=== PATIENT | female | born 1955 | race African-American/Black ===

== ENCOUNTER 2019-05-26 11:16 | Emergency (ER) | payer OTHER ==
[2019-05-26] MEDS ORDERED: ONDANSETRON 4 MG/2 ML VIAL ONE (11:56)
[2019-05-26] MEDS ORDERED: MORPHINE 4 MG/ML SYR ONE (11:56)
[2019-05-26 12:15] LABS: Absolute Lymphocytes (CBC) 1.3 K/uL (0.7-4.9); Basophils % 0.6 % (0-1.3); Eosinophils % 3.2 % (0-4.4); Hematocrit 31.5 % (36.0-45.0); Lymphocytes % 28.7 % (15.3-44.8); MPV 9.4 fL (7.6-11.3); Monocytes % 5.2 % (3.3-12.3); RBC Red Blood Cell Count 3.56 M/uL (3.86-4.86)
[2019-05-26 12:31] LABS: Albumin 3.6 g/dL (3.4-5.0); Bilirubin Direct 0.1 mg/dL (0-0.2); Bilirubin Total 0.4 mg/dL (0.2-1.0); Potassium 3.5 mmol/L (3.5-5.1); Protein, Total 7.5 g/dL (6.4-8.2)
[2019-05-26] MEDS ORDERED: NA CHLORIDE 0.9% 1,000 ML ONE (12:52)
[2019-05-26 13:28] LABS: Urine Blood TRACE (NEG); Urine Glucose NEGATIVE (NEG); Urine Protein TRACE (NEG); Urine Specific Gravity 1.015 (1.005-1.030)
--- NOTE | 2019-05-26 13:30 | RAD REPORT ---
EXAM DESCRIPTION: CT - Abdomen Pelvis W Contrast - 05/26/2019 12:51 pm CLINICAL HISTORY: Abdominal pain with dysuria COMPARISON: November 2017 TECHNIQUE: Computed axial tomography of the abdomen pelvis was obtained. 100 cc Isovue-300 was admin istered intravenously. Oral contrast was not requested which limits evaluation of bowel. All CT scans are performed using dose optimization technique as appropriate and may include automated exposure control or mA/KV adjustment according to patient size. FINDINGS: The liver, spleen, pancreas, adrenal and kidneys appear unremarkable. There is no evidence of diverticulitis. 7 millimeter bladder calculus. Cholecystectomy Proximal appendix is normal. Borderline dilatation of the distal appendix. No stranding within the ad jacent. A 24 millimeter complex cystic structure within the vagina is unchanged IMPRESSION: Borderline dilatation of distal appendix. Given that there is no stranding within the ad jacent fat this may be normal for the patient. Early appendicitis is another consideration 24 millimeter complex cystic structure within the vagina is unchanged and presumably benign. Follow-u p ultrasound 6 months recommended for re-evaluation.
[2019-05-26 13:40] LABS: Urine Bacteria 20-50 /HPF (<20); Urine Culture Reflex Order REFLEXED; Urine RBC <5 /HPF (NONE SEEN)
--- NOTE | 2019-05-26 17:46 | RAD REPORT ---
EXAM DESCRIPTION: CT - Abdomen Pelvis Wo Contrast - 05/26/2019 5:16 pm CLINICAL HISTORY: Abdominal pain with vomiting for several months COMPARISON: May 26, 2019 CT TECHNIQUE: Computed axial tomography of the abdomen and pelvis was obtained.. Oral contrast was give n. Coronal reconstructions performed. All CT scans are performed using dose optimization technique as appropriate and may include automated exposure control or mA/KV adjustment according to patient size. FINDINGS: The examination was performed to assess appendix. The terminal ileum and cecum are opacified with con trast. No no oral contrast taken for the current exam is seen within the appendix. The proximal appendix is normal. The distal appendix is borderline enlarged. No stranding is seen wit hin the adjacent fat IMPRESSION: The borderline enlargement of the appendix may be a normal finding for this patient. Ea rly appendicitis can also have this appearance.
--- NOTE | 2019-05-26 18:09 | EDPHYS ---
Physician Documentation [facility] Name: Jacinta Olea Age: 63 yrs Sex: Female : 1955 Arrival Date: 05/26/2019 Time: 11:18 Bed 20 Private MD: ED Physician Nino Starkey HPI: 05/26 11:41 This 63 yrs old Black Female presents to ER via Ambulatory with complaints of Abdominal kb Pain. 11:41 The patient presents with abdominal pain that is diffuse. Onset: The symptoms/episode kb began/occurred 3 week(s) ago. The symptoms do not radiate. Associated signs and symptoms: none. The symptoms are described as constant. Modifying factors: The symptoms are alleviated by nothing, the symptoms are aggravated by nothing. Severity of pain: At its worst the pain was moderate in the emergency department the pain is unchanged. The patient has not experienced similar symptoms in the past. The patient has not recently seen a physician. Historical: - Allergies: 11:23 PENICILLINS; aj1 - Home Meds: 11:23 alprazolam 1 mg Oral tab 1 tab 3 times per day [Active]; atorvastatin 40 mg Oral tab 1 aj1 tab once daily [Active]; benzonatate 100 mg Oral cap twice a day [Active]; benztropine 2 mg Oral tab 1 tab 2 times per day [Active]; Duexis 800-26.6 mg Oral tab [Active]; gabapentin 300 mg Oral cap twice a day [Active]; hydroxyzine HCl 25 mg Oral tab nightly [Active]; loratadine 10 mg Oral tab 1 tab once daily [Active]; Seroquel 400 mg Oral tab nightly [Active]; sertraline 200 mg Oral tab once daily [Active]; trazodone 100 mg Oral tab nightly [Active]; - PMHx: 11:23 Anxiety; Depression; Hyperlipidemia; aj1 - PSHx: 11:23 Hysterectomy; aj1 - Immunization history:: Flu vaccine is not up to date. - Social history:: Smoking status: Patient uses tobacco products, denies chronic smoking, but will smoke occasionally. - Ebola Screening: : Patient denies travel to an Ebola-affected area in the 21 days before illness onset. ROS: 11:40 Constitutional: Negative for fever, chills, and weight loss, ENT: Negative for injury, kb pain, and discharge, Neck: Negative for injury, pain, and swelling, Cardiovascular: Negative for chest pain, palpitations, and edema, Respiratory: Negative for shortness of breath, cough, wheezing, and pleuritic chest pain, Back: Negative for injury and pain, MS/Extremity: Negative for injury and deformity, Skin: Negative for injury, rash, and discoloration, Neuro: Negative for headache, weakness, numbness, tingling, and seizure. 11:40 Abdomen/GI: Positive for abdominal pain, Negative for nausea, vomiting, and diarrhea, constipation, abdominal cramps, abdominal distension, anorexia. 11:40 : Positive for urinary symptoms. Exam: 11:40 Constitutional: This is a well developed, well nourished patient who is awake, alert, kb and in no acute distress. Head/Face: Normocephalic, atraumatic. Chest/axilla: Normal chest wall appearance and motion. Nontender with no deformity. No lesions are appreciated. Cardiovascular: Regular rate and rhythm with a normal S1 and S2. No gallops, murmurs, or rubs. Normal PMI, no JVD. No pulse deficits. Respiratory: Lungs have equal breath sounds bilaterally, clear to auscultation and percussion. No rales, rhonchi or wheezes noted. No increased work of breathing, no retractions or nasal flaring. Back: No spinal tenderness. No costovertebral tenderness. Full range of motion. Skin: Warm, dry with normal turgor. Normal color with no rashes, no lesions, and no evidence of cellulitis. MS/ Extremity: Pulses equal, no cyanosis. Neurovascular intact. Full, normal range of motion. Neuro: Awake and alert, GCS 15, oriented to person, place, time, and situation. Cranial nerves II-XII grossly intact. Motor strength 5/5 in all extremities. Sensory grossly intact. Cerebellar exam normal. Normal gait. 11:40 Abdomen/GI: Inspection: abdomen appears normal, Bowel sounds: normal, in all quadrants, Palpation: soft, in all quadrants, mild abdominal tenderness, in the right upper quadrant and left upper quadrant, moderate abdominal tenderness, in the right lower quadrant and left lower quadrant. Vital Signs: 11:23 BP 188 / 89; Pulse 83; Resp 18; Temp 97.6; Pulse Ox 95% on R/A; Weight 111.13 kg (R); aj1 Height 5 ft. 4 in. (162.56 cm) (R); Pain 10/10; 12:00 BP 144 / 70; Pulse 78; Resp 18; Pulse Ox 99% on R/A; em 13:34 BP 176 / 85; Pulse 76; Resp 18; Pulse Ox 95% on R/A; Pain 10/10; em 14:30 BP 174 / 86; Pulse 76; Resp 18; Pulse Ox 99% on R/A; Pain 5/10; em 16:01 BP 168 / 80; Pulse 73; Resp 18; Pulse Ox 97% on R/A; em 16:30 BP 166 / 82; Pulse 73; Resp 17; Temp 97.9(TE); Pulse Ox 95% on R/A; Pain 8/10; rb1 17:30 BP 136 / 82; Pulse 81; Resp 18; Temp 98.0; Pulse Ox 97% on R/A; Pain 7/10; rb1 18:30 BP 147 / 92; Pulse 77; Resp 19; Temp 98.3(O); Pulse Ox 96% on R/A; Pain 6/10; rb1 11:23 Body Mass Index 42.05 (111.13 kg, 162.56 cm) aj1 MDM: 11:28 Patient medically screened. kb 11:40 Data reviewed: vital signs, nurses notes. Data interpreted: Pulse oximetry: on room air kb is 95 %. Interpretation: normal. 14:44 ED course: Repeat abd CT with PO contrast ordered due to findings of "borderline kb dilation of distal appendix" on first scan. . 18:05 Counseling: I had a detailed discussion with the patient and/or guardian regarding: the kb historical points, exam findings, and any diagnostic results supporting the discharge/admit diagnosis, lab results, radiology results, the need for outpatient follow up, a family practitioner, a general surgeon, to return to the emergency department if symptoms worsen or persist or if there are any questions or concerns that arise at home. Special discussion: Based on the patient's Hx, exam, and Dx evaluation, there is no indication for emergent surgery or inpatient Tx. It is understood by the patient/guardian that if the Sx's persist or worsen they need to return immediately for re-evaluation. ED course: Appendicitis unlikely with pt's history and exam findings. Pt has had pain for 3 weeks, WBC normal, no fever, no n/v/d. Pt has tenderness to entire lower abd, no point tenderness, no rebound tenderness. Pt's CT scan from November 2017 also revealed enlarged appendix, no appendectomy performed. Appendix enlargement seen on CT likely normal for pt. Pt given strict return precautions. . 18:09 Data reviewed: I have discussed the patient's presentation/case with the attending Emergency Department Physician;. 05/26 11:35 Order name: Basic Metabolic Panel; Complete Time: 12:32 kb 05/26 11:35 Order name: CBC with Diff; Complete Time: 12:28 kb 05/26 11:35 Order name: Hepatic Function; Complete Time: 12:32 kb 05/26 11:35 Order name: Lipase; Complete Time: 12:32 kb 05/26 13:15 Order name: Urine Microscopic Only; Complete Time: 13:41 kb 05/26 13:17 Order name: Urine Dipstick--Ancillary (enter results); Complete Time: 13:31 eb 05/26 11:35 Order name: CT Abd/Pelvis - IV Contrast Only; Complete Time: 13:31 kb 05/26 13:41 Order name: Urine Culture EDMS 05/26 14:55 Order name: Abdomen ; Complete Time: 17:47 EDMS 05/26 11:35 Order name: IV Saline Lock; Complete Time: 11:55 kb 05/26 11:35 Order name: Labs collected and sent; Complete Time: 11:55 kb 05/26 11:35 Order name: Urine Dipstick-Ancillary (obtain specimen); Complete Time: 13:33 kb Administered Medications: 11:50 Drug: Zofran 4 mg Route: IVP; Site: right antecubital; ss 13:15 Follow up: Response: No adverse reaction em 11:52 Drug: morphine 4 mg Route: IVP; Site: right antecubital; ss 13:14 Follow up: Response: No adverse reaction em 13:14 Drug: NS 0.9% 1000 ml Route: IV; Rate: 1000 ml; Site: right antecubital; em 18:21 Follow up: IV Status: Completed infusion rb1 18:29 Drug: Cipro 500 mg Route: PO; rb1 18:29 Follow up: Response: Medication administered at discharge. rb1 Disposition: 18:34 Co-signature as Attending Physician, Nino Starkey MD Evaluated patient, first CT abdomen rn showed borderline dilated appendix without secondary signs of appendicitis. Given normal WBC and pain for 3 weeks and afebrile, unlikely appendicitis. Abd exam shows more left sided pain and no peritoneal signs. Chart review shows previous admission for same borderline dilated appendix and didn't require surgery. Given no change and no secondary signs of appendicitis in numerous CT scans, decision made after long discussion with patient and regarding care. Patient with chief complaint of urinary symptoms, dysuria, and states usually has similar abd pain with her previous UTIs. Return precautions given and understood.. Disposition: 05/26/19 18:08 Discharged to Home. Impression: Urinary tract infection, site not specified, Generalized abdominal pain. - Condition is Stable. - Discharge Instructions: Urinary Tract Infection, Adult, [id number], Abdominal Pain, Adult, [id number]. - Prescriptions for Bentyl 20 mg Oral Tablet - take 1 tablet by ORAL route every 6 hours As needed; 20 tablet. Cipro 500 mg Oral Tablet - take 1 tablet by ORAL route every 12 hours for 7 days; 14 tablet. - Medication Reconciliation Form, Thank You Letter, Antibiotic Education, Prescription Opioid Use form. - Follow up: Emergency Department; When: As needed; Reason: Worsening of condition. Follow up: Private Physician; When: 2 - 3 days; Reason: Recheck today's complaints, Continuance of care, Re-evaluation by your physician. Signatures: Dispatcher [employer] [facility] Elsa Arreola, MOBILE PLANT OPERATORS-C [employer]ANT OPERATORS-Heaven Davalos RN RN aj1 Hair Nguyen, COMPUTING CONSULTANT COMPUTING CONSULTANT em Nino Starkey MD MD rn Smirch, Shelby, RN RN ss Barber, Rebecca, RN RN rb1 Corrections: (The following items were deleted from the chart) 14:55 14:46 Abdomen Pelvis W Con+CT.RAD.BRZ ordered. [facility] 18:32 18:08 05/26/2019 18:08 Discharged to Home. Impression: Urinary tract infection, site rb1 not specified; Generalized abdominal pain. Condition is Stable. Forms are Medication Reconciliation Form, Thank You Letter, Antibiotic Education, Prescription Opioid Use. Follow up: Emergency Department; When: As needed; Reason: Worsening of condition. Follow up: Private Physician; When: 2 - 3 days; Reason: Recheck today's complaints, Continuance of care, Re-evaluation by your physician. kb
--- NOTE | 2019-05-26 18:09 | ER ---
Nurse's Notes [facility] Name: Jacinta Olea Age: 63 yrs Sex: Female : 1955 Arrival Date: 05/26/2019 Time: 11:18 Bed 20 Private MD: Diagnosis: Urinary tract infection, site not specified;Generalized abdominal pain Presentation: 05/26 11:20 Presenting complaint: Patient states: Abdominal pain, dysuria for the past 3 weeks. aj1 Denies N/V. Reports diarrhea. Denies fever. Transition of care: patient was not received from another setting of care. Onset of symptoms was April 2019. Risk Assessment: Do you want to hurt yourself or someone else? Patient reports no desire to harm self or others. Initial Sepsis Screen: Does the patient meet any 2 criteria? No. Patient's initial sepsis screen is negative. Does the patient have a suspected source of infection? Yes: Dysuria/Frequency/Urgency/UTI Acute abdominal pain. Care prior to arrival: None. 11:20 Method Of Arrival: Ambulatory aj 11:20 Acuity: LAUREN 3 aj1 Triage Assessment: 11:23 General: Appears in no apparent distress. uncomfortable, Behavior is calm, cooperative, aj1 appropriate for age. Pain: Complains of pain in suprapubic area Pain currently is 10 out of 10 on a pain scale. Neuro: Level of Consciousness is awake, alert, obeys commands. Cardiovascular: Patient's skin is warm and dry. Respiratory: Airway is patent Respiratory effort is even, unlabored, Respiratory pattern is regular, symmetrical. GI: Reports diarrhea, Patient currently denies nausea, vomiting. : Reports burning with urination. Historical: - Allergies: 11:23 PENICILLINS; aj1 - Home Meds: 11:23 alprazolam 1 mg Oral tab 1 tab 3 times per day [Active]; atorvastatin 40 mg Oral tab 1 aj1 tab once daily [Active]; benzonatate 100 mg Oral cap twice a day [Active]; benztropine 2 mg Oral tab 1 tab 2 times per day [Active]; Duexis 800-26.6 mg Oral tab [Active]; gabapentin 300 mg Oral cap twice a day [Active]; hydroxyzine HCl 25 mg Oral tab nightly [Active]; loratadine 10 mg Oral tab 1 tab once daily [Active]; Seroquel 400 mg Oral tab nightly [Active]; sertraline 200 mg Oral tab once daily [Active]; trazodone 100 mg Oral tab nightly [Active]; - PMHx: 11:23 Anxiety; Depression; Hyperlipidemia; aj1 - PSHx: 11:23 Hysterectomy; aj1 - Immunization history:: Flu vaccine is not up to date. - Social history:: Smoking status: Patient uses tobacco products, denies chronic smoking, but will smoke occasionally. - Ebola Screening: : Patient denies travel to an Ebola-affected area in the 21 days before illness onset. Screenin:45 Abuse screen: Denies threats or abuse. Nutritional screening: No deficits noted. em Tuberculosis screening: No symptoms or risk factors identified. Fall Risk None identified. Assessment: 11:30 General: Appears in no apparent distress. uncomfortable, Behavior is calm, cooperative, em Denies fever. Pain: Complains of pain in abdomen Pain currently is 10 out of 10 on a pain scale. Neuro: Level of Consciousness is awake, alert, obeys commands, Oriented to person, place, time, situation. Cardiovascular: Capillary refill < 3 seconds is brisk Patient's skin is warm and dry. Respiratory: Airway is patent Respiratory effort is even, unlabored, Respiratory pattern is regular, symmetrical. GI: Abdomen is obese, Bowel sounds present X 4 quads. Abd is soft X 4 quads Abdomen is tender to palpation X 4 quads. Reports nausea, vomiting, Patient currently denies diarrhea. : Reports urinary frequency, "urine smells". Derm: Skin is intact, is healthy with good turgor, Skin is pink, warm \\T\\ dry. Musculoskeletal: Range of motion: intact in all extremities. 12:45 Reassessment: Patient appears in no apparent distress at this time. wheeled to CT via em wheelchair. 13:32 Reassessment: Patient appears in no apparent distress at this time. Patient and/or em family updated on plan of care and expected duration. Pain level reassessed. Patient is alert, oriented x 3, equal unlabored respirations, skin warm/dry/pink. 14:44 Reassessment: Patient appears in no apparent distress at this time. Patient and/or em family updated on plan of care and expected duration. Pain level reassessed. Patient is alert, oriented x 3, equal unlabored respirations, skin warm/dry/pink. 15:17 Reassessment: finished drinking PO contrast, tolerated well, notified CT. em 16:00 Reassessment: Patient appears in no apparent distress at this time. Patient and/or em family updated on plan of care and expected duration. Pain level reassessed. Patient is alert, oriented x 3, equal unlabored respirations, skin warm/dry/pink. 16:05 Reassessment: HAIR Arndt notified provider that the pt. was requesting pain medication. rb1 He did not receive any new orders per his report. 16:25 General: Appears uncomfortable, Behavior is calm, cooperative. Pain: Complains of pain rb1 in abdomen Pain currently is 7 out of 10 on a pain scale. Neuro: Level of Consciousness is awake, alert, obeys commands, Oriented to person, place, time, situation. Cardiovascular: Capillary refill < 3 seconds is brisk in bilateral fingers. Respiratory: Airway is patent Respiratory effort is even, unlabored, Respiratory pattern is regular, symmetrical. Derm: Skin is dry, Skin is normal, Skin temperature is warm. 17:30 Reassessment: Patient appears in no apparent distress at this time. No changes from rb1 previously documented assessment. Family at bedside. 18:30 Reassessment: Patient appears in no apparent distress at this time. Patient and/or rb1 family updated on plan of care and expected duration. Pain level reassessed. Patient is alert, oriented x 3, equal unlabored respirations, skin warm/dry/pink. Vital Signs: 11:23 BP 188 / 89; Pulse 83; Resp 18; Temp 97.6; Pulse Ox 95% on R/A; Weight 111.13 kg (R); aj1 Height 5 ft. 4 in. (162.56 cm) (R); Pain 10/10; 12:00 BP 144 / 70; Pulse 78; Resp 18; Pulse Ox 99% on R/A; em 13:34 BP 176 / 85; Pulse 76; Resp 18; Pulse Ox 95% on R/A; Pain 10/10; em 14:30 BP 174 / 86; Pulse 76; Resp 18; Pulse Ox 99% on R/A; Pain 5/10; em 16:01 BP 168 / 80; Pulse 73; Resp 18; Pulse Ox 97% on R/A; em 16:30 BP 166 / 82; Pulse 73; Resp 17; Temp 97.9(TE); Pulse Ox 95% on R/A; Pain 8/10; rb1 17:30 BP 136 / 82; Pulse 81; Resp 18; Temp 98.0; Pulse Ox 97% on R/A; Pain 7/10; rb1 18:30 BP 147 / 92; Pulse 77; Resp 19; Temp 98.3(O); Pulse Ox 96% on R/A; Pain 6/10; rb1 11:23 Body Mass Index 42.05 (111.13 kg, 162.56 cm) aj1 ED Course: 11:18 Patient arrived in ED. as 11:21 Triage completed. aj1 11:23 Elsa Arreola FNP-C [facility] kb 11:23 Nino Starkey MD is Attending Physician. kb 11:23 Arm band placed on Patient placed in an exam room. aj1 11:30 Hair Nguyen LVN is Primary Nurse. em 11:45 Patient has correct armband on for positive identification. Bed in low position. Call em light in reach. Adult w/ patient. Pulse ox on. NIBP on. 11:50 Initial lab(s) drawn, by me, sent to lab. Inserted saline lock: 22 gauge in right em antecubital area, using aseptic technique. Blood collected. 12:52 CT Abd/Pelvis - IV Contrast Only In Process Unspecified. EDMS 17:16 Abdomen In Process Unspecified. EDMS 17:22 CT completed. Patient tolerated procedure well. Patient moved to CT via stretcher. Patient moved back from CT. 18:31 No provider procedures requiring assistance completed. IV discontinued, intact, rb1 bleeding controlled, No redness/swelling at site. Pressure dressing applied. Administered Medications: 11:50 Drug: Zofran 4 mg Route: IVP; Site: right antecubital; ss 13:15 Follow up: Response: No adverse reaction em 11:52 Drug: morphine 4 mg Route: IVP; Site: right antecubital; ss 13:14 Follow up: Response: No adverse reaction em 13:14 Drug: NS 0.9% 1000 ml Route: IV; Rate: 1000 ml; Site: right antecubital; em 18:21 Follow up: IV Status: Completed infusion rb1 18:29 Drug: Cipro 500 mg Route: PO; rb1 18:29 Follow up: Response: Medication administered at discharge. rb1 Outcome: 18:08 Discharge ordered by . alesha 18:31 Discharged to home ambulatory, with family. rb1 18:31 Condition: stable 18:31 Discharge instructions given to patient, Instructed on discharge instructions, follow up and referral plans. medication usage, Demonstrated understanding of instructions, follow-up care, medications, Prescriptions given X 2. 18:32 Patient left the ED. rb1 Signatures: Dispatcher [employer] EDElsa Mackenzie, TRANSFORMER BUILDER-C TRANSFORMER BUILDER-Ckb Heaven Evans, RN RN aj1 Jaylen Theodore Edgar, LASER TECHNICIAN LASER TECHNICIAN em Haily Rodriguez Shelby, NAVA RN Whitley Thorpe RN RN rb1 Corrections: (The following items were deleted from the chart) 16:03 16:01 BP 168 / 80; Pulse 18bpm; Resp 18bpm; Pulse Ox 97% RA; em em
[2019-05-26] MEDS ORDERED: CIPROFLOXACIN HCL 500 MG TAB ONE (18:39)
[2019-05-26 19:11] VITALS: BP 147/92; TEMP 98.3; O2SAT 96
== END 2019-05-26 18:32 | disposition home or self-care (01) ==
LOC: ER 11:16
DX: N39.0 Urinary tract infection, site not specified (principal); F41.9 Anxiety disorder, unspecified; F32.9 Major depressive disorder, single episode, unspecified; E78.5 Hyperlipidemia, unspecified; F17.210 Nicotine dependence, cigarettes, uncomplicated; Z88.0 Allergy status to penicillin
CPT/HCPCS: 36415; 74176; 74177; 80048; 80076; 81003; 81015; 83690; 85025; 87086; 87088; 96361; 96374; 96375; 99284; J2405; J7030; Q9967

== ENCOUNTER 2019-11-16 11:04 | Emergency (ER) | payer OTHER ==
[2019-11-16] MEDS ORDERED: ACETAMINOPHEN 325 MG TABLET ONE (12:01)
[2019-11-16 12:35] LABS: Urine Blood TRACE (NEG); Urine Glucose NEGATIVE (NEG); Urine Protein NEGATIVE (NEG); Urine Specific Gravity 1.025 (1.005-1.030); Urine pH 5.5 (5.0-7.0)
[2019-11-16 12:46] LABS: Absolute Lymphocytes (CBC) 1.8 K/uL (0.7-4.9); Basophils % 0.8 % (0-1.3); Hematocrit 33.4 % (36.0-45.0); Lymphocytes % 36.6 % (15.3-44.8); MPV 9.6 fL (7.6-11.3); RBC Red Blood Cell Count 3.79 M/uL (3.86-4.86)
[2019-11-16 12:51] LABS: Protime INR 1.14
[2019-11-16] MEDS ORDERED: ONDANSETRON 4 MG/2 ML VIAL ONE (13:06)
[2019-11-16 13:34] LABS: ALT/SGPT 13 U/L (12-78); AST/SGOT 12 U/L (15-37); Albumin 3.8 g/dL (3.4-5.0); Alkaline Phosphatase 84 U/L (45-117); BUN Blood Urea Nitrogen 14 mg/dL (7-18); Bicarbonate 29 mmol/L (21-32); Bilirubin Direct 0.1 mg/dL (0-0.2); Bilirubin Total 0.5 mg/dL (0.2-1.0); Glucose Level 94 mg/dL (74-106); Lipase 118 U/L (73-393); NT PRO-BNP 38 pg/mL (<125); Protein, Total 7.8 g/dL (6.4-8.2); Sodium Level 140 mmol/L (136-145); Troponin (Emerg Dept Use Only) < 0.02 ng/mL (0.0-0.045)
[2019-11-16 14:09] LABS: Magnesium 2.4 mg/dL (1.8-2.4)
--- NOTE | 2019-11-16 14:18 | RAD REPORT ---
EXAM DESCRIPTION: CT - Head Brain Wo Cont - 11/16/2019 2:02 pm CLINICAL HISTORY: Headache COMPARISON: None. TECHNIQUE: Axial 5 mm thick images of the head were obtained without IV contrast. All CT scans are performed using dose optimization technique as appropriate and may include automated exposure control or mA/KV adjustment according to patient size. FINDINGS: No intracranial hemorrhage, mass, edema or shift of mid-line structures. No acute infarcti on changes seen. No abnormal extra-axial fluid collections. Minimal atrophy and chronic ischemic maurice ge. Ventricles are in proportion to volume loss. Mastoid air cells and visualized portions of the paranasal sinuses are clear. No acute bony findings. Patient has hyperostosis frontalis interna as a normal variant. IMPRESSION: Negative non-contrast CT head examination for acute or significant finding.
--- NOTE | 2019-11-16 14:22 | RAD REPORT ---
EXAM DESCRIPTION: CT - Angio Aorta For Dissection - 11/16/2019 2:02 pm CLINICAL HISTORY: chest pain, abdominal pain COMPARISON: None. TECHNIQUE: Dynamically enhanced 3 mm thick images of the chest, abdomen, and upper pelvis were obtai smith during administration of approximately 150mL Isovue 370 IV contrast. Sagittal and coronal reconst ruction images were generated using MIP and reviewed. Exam utilizes a protocol to evaluate entire cou rse of the aorta. All CT scans are performed using dose optimization technique as appropriate and may include automated exposure control or mA/KV adjustment according to patient size. FINDINGS: Aorta is normal in diameter with no dissection or other acute aortic findings. Reconstruct ion images show no significant findings. Pulmonary arteries are normal as well. No cardiomegaly, pericardial thickening or pericardial effusio n. No mass or infiltrate in the lung parenchyma. Minimal scarring changes are present. No pleural thicke marlon, pleural effusion or pneumothorax. No abnormal mediastinal or hilar mass or lymphadenopathy seen. No chest wall mass or abnormal axillar y lymphadenopathy. Celiac, SMA and renal arteries show no suspicious findings. Solid abdominal viscera and bowel show no significant findings. Cholecystectomy clips are present. No biliary tree dilatation. Renal function is symmetric. No obstructing renal or ureteral calculi. Patient has an 8 mm bladder ca lculus. Multiple phleboliths are present. No mass or abnormal lymphadenopathy. No free air, free flu id or inflammatory stranding. No urinary or bladder wall thickening or mass seen. Disc and bony degenerative change present generally mild for age. More prominent midthoracic endplate spurring and bridging ossification changes are present. No pathologic bone process. IMPRESSION: Negative CT scan of the aorta for aneurysm, dissection or other significant finding. No other significant findings on chest, abdomen and upper pelvis examination. Incidental note made of 8 mm urinary bladder calculus
--- NOTE | 2019-11-16 14:38 | ER ---
Nurse's Notes [facility] Name: Jacinta Olea Age: 64 yrs Sex: Female : 1955 Arrival Date: 11/16/2019 Time: 11:09 Bed 18 Private MD: Diagnosis: Urinary tract infection, site not specified;Acute upper respiratory infection, unspecified;Generalized abdominal pain;Headache Presentation: 11/16 11:14 Presenting complaint: Patient states: pain with urination X 3 weeks, abd pain, chest iw pain with cough, vomited twice on Tuesday. Transition of care: patient was not received from another setting of care. Onset of symptoms was October 28, 2019. Risk Assessment: Do you want to hurt yourself or someone else? Patient reports no desire to harm self or others. Initial Sepsis Screen: Does the patient meet any 2 criteria? No. Patient's initial sepsis screen is negative. Does the patient have a suspected source of infection? No. Patient's initial sepsis screen is negative. Care prior to arrival: None. 11:14 Method Of Arrival: Ambulatory iw 11:14 Acuity: LAUREN 3 iw Historical: - Allergies: 11:16 PENICILLINS; iw 11:16 Tylenol-Codeine #3; iw - PMHx: 11:16 Anxiety; Depression; Hyperlipidemia; iw - PSHx: 11:16 Hysterectomy; iw - Immunization history:: Adult Immunizations not up to date. - Social history:: Smoking status: Patient uses tobacco products, denies chronic smoking, but will smoke occasionally. - Ebola Screening: : Patient negative for fever greater than or equal to 101.5 degrees Fahrenheit, and additional compatible Ebola Virus Disease symptoms Patient denies exposure to infectious person Patient denies travel to an Ebola-affected area in the 21 days before illness onset No symptoms or risks identified at this time. Screenin:42 Abuse screen: Denies threats or abuse. Nutritional screening: No deficits noted. em Tuberculosis screening: No symptoms or risk factors identified. Fall Risk None identified. Assessment: 11:42 General: Appears in no apparent distress. uncomfortable, Behavior is calm, cooperative, em Denies fever. Pain: Complains of pain in right lower quadrant and left lower quadrant Pain currently is 9 out of 10 on a pain scale. Neuro: Level of Consciousness is awake, alert, obeys commands, Oriented to person, place, time, situation, Appropriate for age Instrumentation Chemist are equal bilaterally Speech is slurred, family at bedside reports speech has been like that for about a year. Reports headache. Cardiovascular: Capillary refill < 3 seconds Patient's skin is warm and dry. Respiratory: Airway is patent Respiratory effort is even, unlabored, Respiratory pattern is regular, symmetrical. GI: Abdomen is distended, obese, Reports nausea. Derm: Skin is intact, is healthy with good turgor, Skin is pink, warm \T\ dry. 13:49 Reassessment: Patient appears in no apparent distress at this time. Patient and/or em family updated on plan of care and expected duration. Pain level reassessed. Patient is alert, oriented x 3, equal unlabored respirations, skin warm/dry/pink. wheeled to CT via stretcher, reports nausea has improved but pain is still the same, provider notified. 14:17 Reassessment: Patient appears in no apparent distress at this time. Patient and/or em family updated on plan of care and expected duration. Pain level reassessed. Patient is alert, oriented x 3, equal unlabored respirations, skin warm/dry/pink. Vital Signs: 11:16 BP 141 / 75; Pulse 91; Resp 16; Temp 97.5; Pulse Ox 96% on R/A; Weight 116.57 kg; iw Height 5 ft. 4 in. (162.56 cm); Pain 10/10; 12:47 BP 124 / 79; Pulse 72; Resp 16; Temp 98.6(O); Pulse Ox 96% ; mh5 13:47 BP 131 / 70; Pulse 80; Resp 17; Temp 97.5(O); Pulse Ox 96% on R/A; mh5 11:16 Body Mass Index 44.11 (116.57 kg, 162.56 cm) iw ED Course: 11:09 Patient arrived in ED. mr 11:15 Triage completed. iw 11:16 Arm band placed on. iw 11:20 Tony Starkey PA is PHCP. jmm 11:20 Nino Starkey MD is Attending Physician. jmm 11:21 Hair Nguyen LVN is Primary Nurse. em 12:00 Initial lab(s) drawn, by me, sent to lab. em 12:21 XRAY Chest (1 view) In Process Unspecified. EDMS 12:42 Initial lab(s) drawn, by me, sent to lab. Inserted saline lock: 20 gauge in left iw antecubital area, using aseptic technique. Blood collected. 12:48 Patient has correct armband on for positive identification. Placed in gown. Bed in low mh5 position. Call light in reach. Side rails up X 1. Warm blanket given. Pulse ox on. NIBP on. 14:02 CT Head Brain wo Cont In Process Unspecified. EDMS 14:03 CT Aorta for Dissection In Process Unspecified. EDMS 15:06 No provider procedures requiring assistance completed. IV discontinued, intact, em bleeding controlled, No redness/swelling at site. Pressure dressing applied. Administered Medications: 12:13 Drug: Tylenol 650 mg Route: PO; em 14:17 Follow up: Response: No adverse reaction; Pain is unchanged, physician notified em 13:00 Drug: Zofran 4 mg Route: IVP; Site: left antecubital; iw 13:20 Follow up: Response: No adverse reaction; Nausea is decreased em 14:58 Drug: fentaNYL (PF) 25 mcg Route: IVP; Site: left antecubital; iw 15:07 Follow up: Response: Medication administered at discharge. em Outcome: 14:37 Discharge ordered by . [facility] 15:06 Discharged to home ambulatory, with family. em 15:06 Condition: good 15:06 Discharge instructions given to patient, family, Instructed on discharge instructions, follow up and referral plans. medication usage, Demonstrated understanding of instructions, follow-up care, medications, Prescriptions given X 3. 15:07 Patient left the ED. em Signatures: Dispatcher [employer] EDMS Tony Starkey PA PA jmm Rivera, Mary mr NguyenHair, MEDICAL LAB DIRECTOR MEDICAL LAB DIRECTOR em Bonnie Rae, RN RN [place] [id number]
--- NOTE | 2019-11-16 14:38 | EDPHYS ---
Physician Documentation [facility] Name: Jacinta Olea Age: 64 yrs Sex: Female : 1955 Arrival Date: 11/16/2019 Time: 11:09 Bed 18 Private MD: ED Physician Nino Starkey HPI: 11/16 11:57 This 64 yrs old Black Female presents to ER via Ambulatory with complaints of Headache, jmm Urinary Problem. 11:57 The patient presents with abdominal pain in the lower abdomen. Onset: The jmm symptoms/episode began/occurred gradually, 3 week(s) ago. The symptoms do not radiate. Associated signs and symptoms: Pertinent positives: nausea and vomiting, diarrhea, fever. The symptoms are described as achy. This is a 64 year old female with a history of depression, hlp that presents to the ED with complaints of abdominal pain, vomiting, diarrhea, beginning approx 3 weeks ago. Patient states the abdominal pain radiates into her chest. Patient also complains of dysuria, and a frontal headache. . Historical: - Allergies: 11:16 PENICILLINS; iw 11:16 Tylenol-Codeine #3; iw - PMHx: 11:16 Anxiety; Depression; Hyperlipidemia; iw - PSHx: 11:16 Hysterectomy; iw - Immunization history:: Adult Immunizations not up to date. - Social history:: Smoking status: Patient uses tobacco products, denies chronic smoking, but will smoke occasionally. - Ebola Screening: : Patient negative for fever greater than or equal to 101.5 degrees Fahrenheit, and additional compatible Ebola Virus Disease symptoms Patient denies exposure to infectious person Patient denies travel to an Ebola-affected area in the 21 days before illness onset No symptoms or risks identified at this time. ROS: 12:00 Constitutional: Positive for fever. jmm 12:00 Cardiovascular: Positive for chest pain. 12:00 Abdomen/GI: Positive for abdominal pain, nausea and vomiting, diarrhea. 12:00 : Positive for urinary symptoms. 12:00 Neuro: Positive for headache. 12:00 All other systems are negative. Exam: 12:00 Constitutional: This is a well developed, well nourished patient who is awake, alert, jmm and in no acute distress. Head/Face: atraumatic. Eyes: EOMI, no conjunctival erythema appreciated ENT: Moist Mucus Membranes Neck: Trachea midline, Supple Chest/axilla: Normal chest wall appearance and motion. Cardiovascular: Regular rate and rhythm. No edema appreciated Respiratory: Normal respirations, no respiratory distress appreciated 12:00 Abdomen/GI: Inspection: abdomen appears normal, Bowel sounds: normal, Palpation: abdomen is soft and non-tender, in all quadrants. 12:00 Musculoskeletal/extremity: ROM: intact in all extremities. 12:00 Skin: Appearance: Color: normal in color. 12:00 Neuro: Orientation: is normal, Mentation: is normal, Memory: is normal. 12:00 Psych: Behavior/mood is pleasant, cooperative. Vital Signs: 11:16 BP 141 / 75; Pulse 91; Resp 16; Temp 97.5; Pulse Ox 96% on R/A; Weight 116.57 kg; iw Height 5 ft. 4 in. (162.56 cm); Pain 10/10; 12:47 BP 124 / 79; Pulse 72; Resp 16; Temp 98.6(O); Pulse Ox 96% ; mh5 13:47 BP 131 / 70; Pulse 80; Resp 17; Temp 97.5(O); Pulse Ox 96% on R/A; mh5 11:16 Body Mass Index 44.11 (116.57 kg, 162.56 cm) iw MDM: 11:50 Patient medically screened. keegan 14:35 Data reviewed: vital signs, nurses notes. Counseling: I had a detailed discussion with honey the patient and/or guardian regarding: the historical points, exam findings, and any diagnostic results supporting the discharge/admit diagnosis, lab results, radiology results, the need for outpatient follow up, to return to the emergency department if symptoms worsen or persist or if there are any questions or concerns that arise at home. ED course: Patient is alert and non toxic in appearance in the ED. Will treat with oral abx. Patient advised to follow up with PCP for reevaluation. Patient otherwise given strict return precautions. Patient understood and agrees with the plan of care. . 11/16 11:47 Order name: Urine Dipstick--Ancillary (enter results); Complete Time: 12:37 11/16 11:54 Order name: Basic Metabolic Panel; Complete Time: 14:15 [facility] 11/16 11:54 Order name: CBC with Diff; Complete Time: 12:51 [facility] 11/16 11:54 Order name: LFT's; Complete Time: 14:15 [facility] 11/16 11:54 Order name: Magnesium; Complete Time: 14:15 [facility] 11/16 11:54 Order name: NT PRO-BNP; Complete Time: 14:15 [facility] 11/16 11:54 Order name: PT-INR; Complete Time: 13:07 [facility] 11/16 11:54 Order name: Troponin (emerg Dept Use Only); Complete Time: 14:15 [facility] 11/16 11:54 Order name: XRAY Chest (1 view) [facility] 11/16 11:55 Order name: Lipase; Complete Time: 14:15 [facility] 11/16 11:59 Order name: CT Head Brain wo Cont; Complete Time: 14:28 [facility] 11/16 11:59 Order name: CT Aorta for Dissection; Complete Time: 14:28 [facility] 11/16 11:54 Order name: EKG; Complete Time: 11:55 [facility] 11/16 11:54 Order name: Cardiac monitoring; Complete Time: 11:58 [facility] 11/16 11:54 Order name: EKG - Nurse/Tech; Complete Time: 11:58 [facility] 11/16 11:54 Order name: IV Saline Lock; Complete Time: 13:01 [facility] 11/16 11:54 Order name: Labs collected and sent; Complete Time: 13:01 [facility] 11/16 11:54 Order name: O2 Per Protocol; Complete Time: 11:58 [facility] 11/16 11:54 Order name: O2 Sat Monitoring; Complete Time: 11:58 [facility] 11/16 12:28 Order name: Labs - recollect needed: labs printed for recollect; Complete Time: 13:01 eb Administered Medications: 12:13 Drug: Tylenol 650 mg Route: PO; em 14:17 Follow up: Response: No adverse reaction; Pain is unchanged, physician notified em 13:00 Drug: Zofran 4 mg Route: IVP; Site: left antecubital; iw 13:20 Follow up: Response: No adverse reaction; Nausea is decreased em 14:58 Drug: fentaNYL (PF) 25 mcg Route: IVP; Site: left antecubital; iw 15:07 Follow up: Response: Medication administered at discharge. em Disposition: 15:39 Co-signature as Attending Physician, Nino Starkey MD. rn Disposition: 11/16/19 14:37 Discharged to Home. Impression: Urinary tract infection, site not specified, Acute upper respiratory infection, unspecified, Generalized abdominal pain, Headache. - Condition is Stable. - Discharge Instructions: Abdominal Pain, Adult, General Headache Without Cause, Upper Respiratory Infection, Adult, Urinary Tract Infection, Adult. - Prescriptions for Zofran ODT 4 mg Oral tablet,disintegrating - place 1 tablet by TRANSLINGUAL route every 4-6 hours; 20 tablet. Macrobid 100 mg Oral Capsule - take 1 capsule by ORAL route every 12 hours for 7 days; 14 capsule. Ibuprofen 800 mg Oral Tablet - take 1 tablet by ORAL route every 12 hours As needed take with food; 20 tablet. - Medication Reconciliation Form, Thank You Letter, Antibiotic Education, Prescription Opioid Use form. - Follow up: Private Physician; When: 2 - 3 days; Reason: Recheck today's complaints, Continuance of care, Re-evaluation by your physician. Signatures: Dispatcher [employer] EDMS Tony Starkey PA PA jmm Munoz, Edgar, [place] [employer] em Bonnie Rae, Nino Montano RN, MD MD rn Botello, Elizabeth eb Corrections: (The following items were deleted from the chart) 15:07 14:37 11/16/2019 14:37 Discharged to Home. Impression: Urinary tract infection, site em not specified; Acute upper respiratory infection, unspecified; Generalized abdominal pain; Headache. Condition is Stable. Forms are Medication Reconciliation Form, Thank You Letter, Antibiotic Education, Prescription Opioid Use. Follow up: Private Physician; When: 2 - 3 days; Reason: Recheck today's complaints, Continuance of care, Re-evaluation by your physician. honey
[2019-11-16] MEDS ORDERED: FENTANYL CITR 100 MCG/2 ML ONE (14:55)
[2019-11-16 15:14] VITALS: O2SAT 96
[2019-11-16 15:17] VITALS: BP 131/70; TEMP 97.5
--- NOTE | 2019-11-16 16:09 | RAD REPORT ---
EXAM DESCRIPTION: Master Single View11/16/2019 12:20 pm CLINICAL HISTORY: Chest pain COMPARISON: 2016 FINDINGS: The lungs appear clear of acute infiltrate. The heart is borderline enlarged IMPRESSION: No acute abnormalities displayed
--- NOTE | 2019-11-16 16:34 | EKG ---
Test Date: 2019-11-16 Test Time: 12:01:11 [employer] Mechanic Helper: RIMMA MEASUREMENT RESULTS: Intervals: Rate: 86 NH: 210 QRSD: 92 QT: 372 QTc: 445 [place]: P: 54 NH: 210 QRS: 49 T: 53 INTERPRETIVE STATEMENTS: Sinus rhythm with 1st degree AV block Otherwise normal ECG Compared to ECG 08/12/2017 09:45:50 First degree AV block now present Electronically Signed On 11-16-19 16:33:48 FIRE PATROL by Yoel Rubio
== END 2019-11-16 15:07 | disposition home or self-care (01) ==
LOC: ER 11:04
DX: R51 Headache (principal); N39.0 Urinary tract infection, site not specified; R10.84 Generalized abdominal pain; Z88.0 Allergy status to penicillin; Z88.6 Allergy status to analgesic agent; Z72.0 Tobacco use
CPT/HCPCS: 93005; 85025; 80048; 36415; 83735; 85610; 80076; 81003; 84484; 83690; 83880; 70450; 71275; 74175; 71045; 96375; 96374; 99284; Q9967; J3010; J2405

== ENCOUNTER 2020-01-14 15:51 | Emergency (ER) | payer OTHER ==
[2020-01-14] MEDS ORDERED: NA CHLORIDE 0.9% 1,000 ML ONE (17:06)
[2020-01-14] MEDS ORDERED: KETOROLAC 30 MG/ML INJ ONE (17:07)
[2020-01-14 17:21] LABS: Basophils % 0.7 % (0-1.3); Hematocrit 31.4 % (36.0-45.0); Lymphocytes % 35.7 % (15.3-44.8); MPV 10.3 fL (7.6-11.3); RBC Red Blood Cell Count 3.52 M/uL (3.86-4.86)
[2020-01-14 17:32] LABS: Albumin 3.4 g/dL (3.4-5.0); Bilirubin Direct 0.1 mg/dL (0-0.2); Bilirubin Total 0.3 mg/dL (0.2-1.0); Potassium 3.8 mmol/L (3.5-5.1); Protein, Total 7.5 g/dL (6.4-8.2)
--- NOTE | 2020-01-14 18:10 | ER ---
Nurse's Notes [facility] Name: Jacinta Olea Age: 64 yrs Sex: Female : 1955 Arrival Date: 01/14/2020 Time: 15:56 Bed 17 Private MD: Diagnosis: Upper respiratory tract hypersensitivity reaction, site unspecified Presentation: 01/14 16:07 Presenting complaint: Productive cough with yellow sputum, N/V/D, intermittent fever, hb and body aches x 1 week. Transition of care: patient was not received from another setting of care. Resp Distress? No respiratory distress is noted at this time. Onset of symptoms was January 08, 2020. Risk Assessment: Do you want to hurt yourself or someone else? Patient reports no desire to harm self or others. Initial Sepsis Screen: Does the patient meet any 2 criteria? No. Patient's initial sepsis screen is negative. Does the patient have a suspected source of infection? No. Patient's initial sepsis screen is negative. Care prior to arrival: None. 16:07 Method Of Arrival: Ambulatory hb 16:07 Acuity: LAUREN 3 hb Historical: - Allergies: 16:08 PENICILLINS; hb 16:08 Tylenol-Codeine #3; hb - PMHx: 16:08 Anxiety; Depression; Hyperlipidemia; hb - PSHx: 16:08 Hysterectomy; hb - Immunization history:: Adult Immunizations up to date. - Coronavirus screen:: The patient has NOT traveled to [place] in the past 14 days. The patient has NOT had contact with known/suspected case of Coronavirus? Proceed with normal triage procedures. - Social history:: Smoking status: Patient reports the use of cigarette tobacco products, denies chronic smoking, but will smoke occasionally. - Ebola Screening: : No symptoms or risks identified at this time. Screenin:18 Abuse screen: Denies threats or abuse. Denies injuries from another. Nutritional ca1 screening: No deficits noted. Tuberculosis screening: No symptoms or risk factors identified. Fall Risk None identified. Assessment: 16:18 General: Appears in no apparent distress. comfortable, Behavior is calm, cooperative, ca1 appropriate for age. Pain: Complains of pain in face, scalp, suprapubic area, right arm, left arm, right leg and left leg Pain currently is 10 out of 10 on a pain scale. Pain began 2-3 days ago. Neuro: Level of Consciousness is awake, alert, obeys commands, Oriented to person, place, time, situation, Appropriate for age. Cardiovascular: Heart tones S1 S2 present Capillary refill < 3 seconds. Respiratory: Airway is patent Respiratory effort is even, unlabored, Respiratory pattern is regular, symmetrical, Breath sounds are clear bilaterally. GI: Abdomen is round non-distended, obese, Bowel sounds present X 4 quads. Abd is soft and non tender X 4 quads. : No signs and/or symptoms were reported regarding the genitourinary system. EENT: No signs and/or symptoms were reported regarding the EENT system. Derm: Skin is intact, is healthy with good turgor, Skin is pink, warm \T\ dry. Musculoskeletal: Circulation, motion, and sensation intact. Capillary refill < 3 seconds, Range of motion: intact in all extremities. 17:09 Reassessment: Patient appears in no apparent distress at this time. No changes from ca1 previously documented assessment. Patient and/or family updated on plan of care and expected duration. Pain level reassessed. Patient is alert, oriented x 3, equal unlabored respirations, skin warm/dry/pink. 18:00 Reassessment: Patient appears in no apparent distress at this time. No changes from ca1 previously documented assessment. Patient and/or family updated on plan of care and expected duration. Pain level reassessed. Patient is alert, oriented x 3, equal unlabored respirations, skin warm/dry/pink. 19:00 Reassessment: Patient appears in no apparent distress at this time. Patient is alert, ca1 oriented x 3, equal unlabored respirations, skin warm/dry/pink. Vital Signs: 16:08 BP 182 / 73; Pulse 86; Resp 16; Temp 97.8; Pulse Ox 99% on R/A; Weight 115.21 kg; hb Height 5 ft. 4 in. (162.56 cm); Pain 10/10; 17:09 BP 165 / 90; Pulse 76; Resp 18 S; Pulse Ox 98% on R/A; ca1 18:00 BP 162 / 89; Pulse 74; Resp 16 S; Pulse Ox 98% on R/A; ca1 19:00 BP 157 / 71; Pulse 71; Resp 16 S; Pulse Ox 99% on R/A; ca1 16:08 Body Mass Index 43.60 (115.21 kg, 162.56 cm) ED Course: 15:56 Patient arrived in ED. fj1 16:07 Triage completed. 16:08 Arm band placed on. 16:09 Nayan Dennison MD is Attending Physician. tw4 16:12 Matilde Bravo, RN is Primary Nurse. [facility] 16:18 Patient has correct armband on for positive identification. Bed in low position. Call ca1 light in reach. Side rails up X 1. Pulse ox on. NIBP on. Warm blanket given. 16:18 No provider procedures requiring assistance completed. ca1 16:58 Initial lab(s) drawn, by me, sent to lab. Flu and/or RSV swab sent to lab. Inserted ca1 saline lock: 20 gauge in left antecubital area, using aseptic technique. Blood collected. 19:17 IV discontinued, intact, bleeding controlled, No redness/swelling at site. Administered Medications: 16:50 Drug: NS 0.9% 1000 ml Route: IV; Rate: 1 bolus; Site: left antecubital; ca1 19:17 Follow up: Response: No adverse reaction; IV Status: Completed infusion 16:52 Drug: Ketorolac 15 mg Route: IVP; Site: left antecubital; ca1 19:17 Follow up: Response: No adverse reaction; Pain is decreased Outcome: 18:08 Discharge ordered by . tw4 19:16 Discharged to home ambulatory. 19:16 Condition: stable 19:16 Discharge instructions given to patient, Instructed on discharge instructions, follow up and referral plans. POC Demonstrated understanding of instructions, follow-up care, POC 19:17 Patient left the ED. Signatures: Latoya Zuñiga, NAVA VICK Baltazar Garg Nayan Dennison MD MD 4 Matilde Bravo, NAVA RN [facility]
--- NOTE | 2020-01-14 18:11 | EDPHYS ---
Physician Documentation [facility] Name: Jacinta Olea Age: 64 yrs Sex: Female : 1955 Arrival Date: 01/14/2020 Time: 15:56 Bed 17 Private MD: ED Physician Nayan Dennison HPI: 01/14 16:57 This 64 yrs old Black Female presents to ER via Ambulatory with complaints of Pain All tw4 Over, Dizziness, Congestion. 16:57 The patient presents with generalized weakness, lightheadedness. Onset: The tw4 symptoms/episode began/occurred yesterday. Context: occurred at home. Modifying factors: The symptoms are alleviated by nothing, the symptoms are aggravated by nothing. Associated signs and symptoms: Pertinent positives: body aches, fevers. Severity of symptoms: At their worst the symptoms were mild in the emergency department the symptoms are unchanged. The patient has not experienced similar symptoms in the past. Historical: - Allergies: 16:08 PENICILLINS; hb 16:08 Tylenol-Codeine #3; hb - PMHx: 16:08 Anxiety; Depression; Hyperlipidemia; hb - PSHx: 16:08 Hysterectomy; hb - Immunization history:: Adult Immunizations up to date. - Coronavirus screen:: The patient has NOT traveled to [place] in the past 14 days. The patient has NOT had contact with known/suspected case of Coronavirus? Proceed with normal triage procedures. - Social history:: Smoking status: Patient reports the use of cigarette tobacco products, denies chronic smoking, but will smoke occasionally. - Ebola Screening: : No symptoms or risks identified at this time. ROS: 16:57 Cardiovascular: Negative for chest pain, palpitations, and edema, Respiratory: Negative tw4 for shortness of breath, cough, wheezing, and pleuritic chest pain, Abdomen/GI: Negative for abdominal pain, nausea, vomiting, diarrhea, and constipation, Back: Negative for injury and pain, MS/Extremity: Negative for injury and deformity, Skin: Negative for injury, rash, and discoloration. 16:57 Constitutional: Positive for body aches, fever, Negative for chills, fatigue, poor PO intake, weight loss. 16:57 Neuro: Positive for dizziness, Negative for altered mental status, gait disturbance, headache, hearing loss, loss of consciousness, numbness, seizure activity, speech changes, syncope, tinnitus. Exam: 16:57 Constitutional: This is a well developed, well nourished patient who is awake, alert, tw4 and in no acute distress. Head/Face: Normocephalic, atraumatic. Chest/axilla: Normal chest wall appearance and motion. Nontender with no deformity. No lesions are appreciated. Cardiovascular: Regular rate and rhythm with a normal S1 and S2. No gallops, murmurs, or rubs. Normal PMI, no JVD. No pulse deficits. Respiratory: Lungs have equal breath sounds bilaterally, clear to auscultation and percussion. No rales, rhonchi or wheezes noted. No increased work of breathing, no retractions or nasal flaring. Abdomen/GI: Soft, non-tender, with normal bowel sounds. No distension or tympany. No guarding or rebound. No evidence of tenderness throughout. Back: No spinal tenderness. No costovertebral tenderness. Full range of motion. MS/ Extremity: Pulses equal, no cyanosis. Neurovascular intact. Full, normal range of motion. Neuro: Awake and alert, GCS 15, oriented to person, place, time, and situation. Cranial nerves II-XII grossly intact. Motor strength 5/5 in all extremities. Sensory grossly intact. Cerebellar exam normal. Normal gait. Vital Signs: 16:08 BP 182 / 73; Pulse 86; Resp 16; Temp 97.8; Pulse Ox 99% on R/A; Weight 115.21 kg; hb Height 5 ft. 4 in. (162.56 cm); Pain 10/10; 17:09 BP 165 / 90; Pulse 76; Resp 18 S; Pulse Ox 98% on R/A; ca1 18:00 BP 162 / 89; Pulse 74; Resp 16 S; Pulse Ox 98% on R/A; ca1 19:00 BP 157 / 71; Pulse 71; Resp 16 S; Pulse Ox 99% on R/A; ca1 16:08 Body Mass Index 43.60 (115.21 kg, 162.56 cm) hb MDM: 16:09 Patient medically screened. tw4 21:29 Differential diagnosis: cardiac arrhythmia, CVA, hyperventilation, hypovolemia, tw4 idiopathic dizziness, near-syncope, TIA. Data reviewed: vital signs, nurses notes. Data reviewed: lab test result(s), Flu: negative radiologic studies. Data interpreted: Pulse oximetry: Interpretation: normal. Counseling: I had a detailed discussion with the patient and/or guardian regarding: the historical points, exam findings, and any diagnostic results supporting the discharge/admit diagnosis. Special discussion: I discussed with the patient/guardian in detail that at this point there is no indication for admission to the hospital. It is understood, however, that if the symptoms persist or worsen the patient needs to return immediately for re-evaluation. 01/14 16:38 Order name: Flu 01/14 16:38 Order name: Basic Metabolic Panel 01/14 16:38 Order name: CBC with Diff 01/14 16:38 Order name: Creatinine for Radiology 01/14 16:38 Order name: Hepatic Function 01/14 16:38 Order name: Lipase 01/14 17:23 Order name: CBC with Automated Diff; Complete Time: 17:54 EDMS 01/14 17:55 Interpretation: Normal except: RBC 3.52; HCT 31.4; HGB 10.1. 01/14 17:31 Order name: Creatinine (Radiology Only); Complete Time: 17:54 EDMS 01/14 17:55 Interpretation: Within normal limits: CRE 1.04. 01/14 17:36 Order name: Basic Metabolic Panel; Complete Time: 17:54 EDMS 01/14 17:55 Interpretation: Normal except: CL 108; GLUC 111; GFR 67. 01/14 17:36 Order name: Liver (Hepatic) Function; Complete Time: 17:54 EDMS 01/14 17:55 Interpretation: Normal except: A/G 0.8; GLOB 4.1; ALT 9; AST 13. 01/14 17:36 Order name: Lipase; Complete Time: 17:54 EDMS 01/14 17:55 Interpretation: Within normal limits: LIP 146. 01/14 17:52 Order name: Influenza Screen (A ; Complete Time: 17:54 EDMS 01/14 18:07 Interpretation: Within normal limits. 01/14 16:38 Order name: IV Saline Lock; Complete Time: 16:56 01/14 16:38 Order name: Labs collected and sent; Complete Time: 16:56 4 Administered Medications: 16:50 Drug: NS 0.9% 1000 ml Route: IV; Rate: 1 bolus; Site: left antecubital; ca1 19:17 Follow up: Response: No adverse reaction; IV Status: Completed infusion 16:52 Drug: Ketorolac 15 mg Route: IVP; Site: left antecubital; ca1 19:17 Follow up: Response: No adverse reaction; Pain is decreased Disposition: 01/14/20 18:08 Discharged to Home. Impression: Upper respiratory tract hypersensitivity reaction, site unspecified. - Condition is Stable. - Discharge Instructions: Upper Respiratory Infection, Adult, [id number]. - Medication Reconciliation Form, Thank You Letter, Antibiotic Education, Prescription Opioid Use form. - Follow up: Private Physician; When: Upon discharge from the Emergency Department; Reason: If symptoms return, Recheck today's complaints, Continuance of care, Re-evaluation by your physician. Signatures: Dispatcher [employer] EDLatoya Chacon RN RN Baltazar Watkins Terrence, MD MD tw4 Matilde Bravo RN RN ca1 Corrections: (The following items were deleted from the chart) 19:17 18:08 01/14/2020 18:08 Discharged to Home. Impression: Upper respiratory tract wh hypersensitivity reaction, site unspecified. Condition is Stable. Forms are Medication Reconciliation Form, Thank You Letter, Antibiotic Education, Prescription Opioid Use. Follow up: Private Physician; When: Upon discharge from the Emergency Department; Reason: If symptoms return, Recheck today's complaints, Continuance of care, Re-evaluation by your physician. tw4
[2020-01-14 21:54] VITALS: TEMP 97.8; O2SAT 99
[2020-01-14 22:16] VITALS: BP 157/71
== END 2020-01-14 19:17 | disposition home or self-care (01) ==
LOC: ER 15:51
DX: J39.3 Upper respiratory tract hypersensitivity reaction, site unspecified (principal); Z88.0 Allergy status to penicillin
CPT/HCPCS: 96361; 85025; 80048; 36415; 80076; 83690; 87804 ×2; 96374; 99284; J7030

== ENCOUNTER 2022-09-21 22:50 | Emergency (ER) | payer OTHER ==
--- OUTSIDE RECORDS SUMMARY | 2022-09-21 22:54 | XMS REPORT | Continuity of Care Document ---
:1955 Author Organization [facility] t Address [address] [place] [address] Care Team Providers Name Role Phone Shankar, Michel Herrera Attending Clinician Unavailable Payers Payer Name Policy Type Policy Effective Date Expiration Date Sour ce Number [facility] 2 [id number] 2021 Commo n [facility] [place] 00:00:00 - [facility] Problems Condition Condition Condition Status Onset Resolution Last Treating Co mments Source Name Details Category Date Date Treatment Clinician Date [id number] Mixed Problem Common hyperlipid Spirit emia - [facility] [id number] Non-season Problem Com mon al [facility] allergic - [facility] rhinitis, [facility] [id number] Current Problem Common moderate Spirit episode of - [facility] major [facility] Medical [facility] Center prior episode [id number] Peripheral Problem Com mon polyneurop Spirit athy - [facility] [id number] Body mass Problem Com mon index Spirit [BMI] - 37.0-37.9, [facility] [id number] GERD Problem Common without Spirit esophagiti - [facility] [id number] Morbid Problem Commo n 9104 (severe) Spirit obesity - [facility] due to [facility] [id number] Generalize Problem Com mon d anxiety Spirit disorder - [facility] [id number] Bipolar Problem Commo n affective Spirit disorder, - [facility] current [facility] mixed, Medical current Center episode severity unspecifie d [id number] Insomnia, Problem Com mon unspecifie Spirit d type - [facility] [id number] Osteoarthr Problem Co mmon itis of Spirit multiple - [facility] joints, [facility] osteoarthr Center itis type [id number] Stage 3a Problem Comm on chronic Spirit kidney - [facility] disease [facility] [id number] Panic Problem Common attack [facility] - [facility] Allergies, Adverse Reactions, Alerts This patient has no known allergies or adverse reactions. Social History Social Habit Start Date Stop Date Quantity Comments Source History of Tobacco Current Smoker Co mmon [facility] - [facility] Use [facility] Sex Assigned At Com mon Spirit - [facility] Smoking Status Start Date Stop Date Source Current Smoker 2022-06-11 00:00:00 Common Spiri t - [facility] Medications Ordered Filled Start Stop Current Ordering Indication Dosage Frequency Signature Comments Components Source Medication Medication Date Date Medication? Clinician (SIG) Name Name Loratadine Loratadine No 1{table QD Loratadine 10 MG 10 MG t} 10 MG Atorvastati Atorvastati No 1{table QD Atorvastat n Calcium n Calcium t} in Calcium 40 MG 40 MG 40 MG traZODone traZODone No 1{table BID traZODone HCl 100 MG HCl 100 MG t} HCl 100 MG Albuterol Albuterol No Albuterol Sulfate HFA Sulfate HFA Sulfate 108 (90 108 (90 HFA 108 Base) Base) (90 Base) MCG/ACT MCG/ACT MCG/ACT Atorvastati Atorvastati No Atorvastat n Calcium n Calcium in Calcium 40 MG 40 MG 40 MG QUEtiapine QUEtiapine No 1{table QD QUEtiapine Fumarate Fumarate t_at_be Fumarate 400 MG 400 MG dtime} 400 MG Gabapentin Gabapentin No Gabapentin 300 MG 300 MG 300 MG aerosol aerosol No aerosol Benzonatate Benzonatate No 1{capsu TID Benzonatat 100 MG 100 MG le_as_n e 100 MG eeded} Meloxicam Meloxicam No 1{table Meloxicam 7.5 MG 7.5 MG t} 7.5 MG Sertraline Sertraline No 1{table QD Sertraline HCl 100 MG HCl 100 MG t} HCl 100 MG Meloxicam Meloxicam No 1{table Meloxicam 7.5 MG 7.5 MG t} 7.5 MG traZODone traZODone No traZODone HCl 100 MG HCl 100 MG HCl 100 MG Gabapentin Gabapentin No 1{capsu TID Gabapentin 300 MG 300 MG le} 300 MG Procedures This patient has no known procedures. Encounters Start End Encounter Admission Attending Care Care Encounter Source Date/Time Date/Time Type Type Clinicians Facility Department ID 2022-09-13 Outpatient Shankar, [facility] [id number] Common 14:37:02 Michel 140[address] [facility] 2022-06-16 Outpatient Shankar, [facility] [id number] Common 10:29:04 Michel [id number] [facility] 2022-08-19 2022-08-19 (TEL) [facility] [id number] Co mmon 00:00:00 00:00:00 [facility] 2022-06-16 2022-06-16 ambulatory [facility] [id number] Common 00:00:00 00:00:00 [facility] Results This patient has no known results.
[2022-09-21] MEDS ORDERED: LIDOCAINE 1% W/EPI 1:100,000 30 ML VIAL ONE (23:12)
[2022-09-21] MEDS ORDERED: TETANUS & DIPHTHERIA TOX,ADULT 0.5 ML VIAL ONE (23:12)
[2022-09-21 23:30] LABS: Absolute Lymphocytes (CBC) 2.1 K/uL (0.7-4.9); Hematocrit 27.7 % (36.0-45.0); Lymphocytes % 37.9 % (15.3-44.8); MCV 91.1 fL (80-100); MPV 8.9 fL (7.6-11.3); RBC Red Blood Cell Count 3.04 M/uL (3.86-4.86)
[2022-09-21 23:45] LABS: Albumin 3.1 g/dL (3.4-5.0); Bilirubin Total 0.4 mg/dL (0.2-1.0); Potassium 3.9 mmol/L (3.5-5.1); Protein, Total 7.1 g/dL (6.4-8.2)
--- NOTE | 2022-09-22 00:10 | ER ---
Nurse's Notes [facility] Name: Jacinta Olea Age: 67 yrs Sex: Female : 1955 Arrival Date: 09/21/2022 Time: 22:52 Bed 7 Private MD: Diagnosis: Fall (on) (from) other stairs and steps;Laceration without foreign body of other part of head-forehead;Anemia, unspecified Presentation: 09/21 22:52 Chief complaint: EMS states: Toned out for laceration to forehead, EMS states pt ll3 tripped over rug at home and hit head on corner of night stand, pt c/o pain to forehead and back of neck, states "It feels like a needle stabbing me back there". Coronavirus screen: Vaccine status: Patient reports receiving the 2nd dose of the covid vaccine. At this time, the client does not indicate any symptoms associated with coronavirus-19. Ebola Screen: No symptoms or risks identified at this time. Initial Sepsis Screen: Does the patient meet any 2 criteria? No. Patient's initial sepsis screen is negative. Does the patient have a suspected source of infection? No. Patient's initial sepsis screen is negative. Risk Assessment: Do you want to hurt yourself or someone else? Patient reports no desire to harm self or others. Onset of symptoms was September 21, 2022. Care prior to arrival: Bleeding of injury controlled. Injury dressed. Glucose check: 118. Mechanism of Injury: Laceration sustained at home, while falling, from Hit forehead on night stand. Transition of care: patient was not received from another setting of care. 22:52 Method Of Arrival: EMS: [facility] 3 22:52 Acuity: LAUREN 3 ll3 Triage Assessment: 22:57 General: Appears in no apparent distress. uncomfortable, Behavior is calm, cooperative. ll3 Pain: Complains of pain in forehead and neck Pain currently is 10 out of 10 on a pain scale. Quality of pain is described as sharp, stabbing, Pain began suddenly, Is continuous. Neuro: Level of Consciousness is awake, alert, obeys commands, Oriented to person, place, time, situation, Denies dizziness. Cardiovascular: Patient's skin is warm and dry. Respiratory: Respiratory effort is even, unlabored, Respiratory pattern is regular, symmetrical. Derm: Wound noted forehead Wound is laceration to left side of forehead, bleeding controlled. Musculoskeletal: Reports pain in base of the skull since Falling [employer]. Pain is 10 out of 10 on a pain scale. Injury Description: Laceration sustained to forehead is clean, 0.5 to 2.5 cm long, was sustained less than 30 minutes ago. a small amount of bleeding noted at this time. Historical: - Allergies: 22:57 PENICILLINS; ll3 22:57 Tylenol-Codeine #3; ll3 - Home Meds: 22:57 sertraline Oral [Active]; atorvastatin Oral [Active]; Propranolol Oral [Active]; ll3 quetiapine oral [Active]; sertraline oral [Active]; benztropine Oral [Active]; Fluoxetine Oral [Active]; - PMHx: 22:57 Anxiety; Depression; Hyperlipidemia; ll3 - Immunization history:: Client reports receiving the 2nd dose of the Covid vaccine. - Social history:: Smoking status: Patient reports the use of cigarette tobacco products, denies chronic smoking, but will smoke occasionally. - Family history:: not pertinent. Screenin/26 00:38 Abuse screen: Denies threats or abuse. Denies injuries from another. Nutritional ll3 screening: No deficits noted. Tuberculosis screening: No symptoms or risk factors identified. Fall Risk Fall in past 12 months (25 points). No secondary diagnosis (0 pts). IV access (20 points). Ambulatory Aid- None/Bed Rest/Nurse Assist (0 pts). Gait- Normal/Bed Rest/Wheelchair (0 pts) Mental Status- Oriented to own ability (0 pts). Total Harman Fall Scale indicates High Risk Score (45 or more points). Fall prevention measures have been instituted. Side Rails Up X 2 Placed Close to Nursing Station As available patient and family educated on Fall Prevention Program and Strategies. Assessment: 09/21 23:06 General: See triage assessment. ll3 09/22 00:15 Reassessment: Patient appears in no apparent distress at this time. Patient and/or kl family updated on plan of care and expected duration. Pain level reassessed. Patient is alert, oriented x 3, equal unlabored respirations, skin warm/dry/pink. Patient states symptoms have improved. Vital Signs: 09/21 22:52 BP 107 / 61; Pulse 89; Resp 21; Temp 96.9(TE); Pulse Ox 100% on R/A; Weight 98.43 kg ll3 (R); Height 5 ft. 4 in. (162.56 cm) (R); Pain 10/10; 09/22 00:15 BP 117 / 84; Pulse 82; Resp 18; Pulse Ox 99% on R/A; Pain 5/10; kl 09/21 22:52 Body Mass Index 37.25 (98.43 kg, 162.56 cm) ll3 Blaine Coma Score: 09/21 23:06 Eye Response: spontaneous(4). Verbal Response: oriented(5). Motor Response: obeys zack commands(6). Total: 15. 23:12 Eye Response: spontaneous(4). Verbal Response: oriented(5). Motor Response: obeys zack commands(6). Total: 15. ED Course: 22:52 Patient arrived in ED. ll3 22:57 Triage completed. ll3 22:57 Arm band placed on Patient placed in an exam room, on a stretcher, on alarm security or surveillance monitor, ll3 on pulse oximetry. EKG completed in triage. Results shown to MD. C-collar applied. 22:59 Denton Márquez MD is Attending Physician. zack 23:07 Comprehensive Metabolic Panel Sent. kl 23:07 CBC with Diff Sent. kl 23:08 Inserted saline lock: 20 gauge in right upper arm, using aseptic technique. kl 23:15 Comprehensive Metabolic Panel Sent. kl 23:15 CBC with Diff Sent. kl 23:32 CT Head C Spine In Process Unspecified. EDMS 09/22 00:39 Patient has correct armband on for positive identification. Bed in low position. Call ll3 light in reach. Side rails up X2. Client placed on continuous cardiac and pulse oximetry monitoring. NIBP monitoring applied. 00:39 Assist provider with laceration repair on forehead that was 2.5 cm. or less using ll3 sutures. Set up tray. Performed by Denton Márquez MD Dressed with 4X4s. 00:52 IV discontinued, intact, bleeding controlled, No redness/swelling at site. Pressure kl dressing applied. Administered Medications: 09/21 23:33 Drug: Tetanus Toxoid,Adsorbed 0.5 ml {Outreach Clinician: [employer]. Exp: 04/16/2024. Lot kl #: [id number]. } Route: IM; Site: right deltoid; 09/22 00:34 Drug: Lidocaine-Epinephrine -1%: (1:100,000) 6 ml {Note: Administered by ERP. Murali} Volume: 20 ml; Route: Infiltration; 00:43 Drug: Ketorolac 15 mg Route: IVP; Site: right upper arm; Medication: 00:53 Vaccine Information Statement (VIS) provided today. Questions and/or concerns kl addressed. VIS edition date: July 03, 2021. Outcome: 00:09 Discharge ordered by . zack 00:53 Discharged to home via wheelchair, with family. maren 00:53 Condition: improved 00:53 Discharge instructions given to patient, Instructed on discharge instructions, follow up and referral plans. medication usage, wound care, Demonstrated understanding of instructions, follow-up care, medications, wound care, Prescriptions given X 1. 00:54 Patient left the ED. maren Signatures: Dispatcher [employer] EDMS Jenna Saldaña RN RN kl Anderson, Corey, MD MD cha Loubet, Lynsea, RN RN ll3 Corrections: (The following items were deleted from the chart) 00:53 09/21 23:15 IV discontinued, intact, bleeding controlled, No redness/swelling at site. maren Pressure dressing applied, maren
--- NOTE | 2022-09-22 00:10 | EDPHYS ---
Physician Documentation [facility] Name: Jacinta Olea Age: 67 yrs Sex: Female : 1955 Arrival Date: 09/21/2022 Time: 22:52 Bed 7 Private MD: ED Physician Denton Márquez HPI: 09/21 23:06 This 67 yrs old Black Female presents to ER via EMS with complaints of fall and hit zack head, laceration. 23:06 The patient or guardian reports injury, a laceration, 2.5 cm(s). The complaints affect zack the forehead. Context of injury: The problem was sustained at home. Onset: The symptoms/episode began/occurred just prior to arrival. Associated signs and symptoms: The patient has no apparent associated signs or symptoms, Loss of consciousness: This patient did not experience any loss of consciousness. Severity of symptoms: At their worst the symptoms were mild, in the emergency department the symptoms are unchanged. The patient has not experienced similar symptoms in the past. Historical: - Allergies: 22:57 PENICILLINS; ll3 22:57 Tylenol-Codeine #3; ll3 - Home Meds: 22:57 sertraline Oral [Active]; atorvastatin Oral [Active]; Propranolol Oral [Active]; ll3 quetiapine oral [Active]; sertraline oral [Active]; benztropine Oral [Active]; Fluoxetine Oral [Active]; - PMHx: 22:57 Anxiety; Depression; Hyperlipidemia; ll3 - Immunization history:: Client reports receiving the 2nd dose of the Covid vaccine. - Social history:: Smoking status: Patient reports the use of cigarette tobacco products, denies chronic smoking, but will smoke occasionally. - Family history:: not pertinent. ROS: 23:06 Constitutional: Negative for fever, chills, and weight loss, Eyes: Negative for injury, zack pain, redness, and discharge, ENT: Negative for injury, pain, and discharge, Neck: Negative for injury, pain, and swelling, Cardiovascular: Negative for chest pain, palpitations, and edema, Respiratory: Negative for shortness of breath, cough, wheezing, and pleuritic chest pain, Abdomen/GI: Negative for abdominal pain, nausea, vomiting, diarrhea, and constipation, Back: Negative for injury and pain, : Negative for injury, bleeding, discharge, and swelling, MS/Extremity: Negative for injury and deformity, Neuro: Negative for headache, weakness, numbness, tingling, and seizure, Psych: Negative for depression, anxiety, suicide ideation, homicidal ideation, and hallucinations, Allergy/Immunology: Negative for hives, rash, and allergies, Endocrine: Negative for neck swelling, polydipsia, polyuria, polyphagia, and marked weight changes, Hematologic/Lymphatic: Negative for swollen nodes, abnormal bleeding, and unusual bruising. 23:06 Skin: Positive for laceration(s). Exam: 23:06 Constitutional: This is a well developed, well nourished patient who is awake, alert, zack and in no acute distress. Eyes: Pupils equal round and reactive to light, extra-ocular motions intact. Lids and lashes normal. Conjunctiva and sclera are non-icteric and not injected. Cornea within normal limits. Periorbital areas with no swelling, redness, or edema. ENT: Nares patent. No nasal discharge, no septal abnormalities noted. Tympanic membranes are normal and external auditory canals are clear. Oropharynx with no redness, swelling, or masses, exudates, or evidence of obstruction, uvula midline. Mucous membranes moist. Neck: Trachea midline, no thyromegaly or masses palpated, and no cervical lymphadenopathy. Supple, full range of motion without nuchal rigidity, or vertebral point tenderness. No Meningismus. Chest/axilla: Normal chest wall appearance and motion. Nontender with no deformity. No lesions are appreciated. Cardiovascular: Regular rate and rhythm with a normal S1 and S2. No gallops, murmurs, or rubs. Normal PMI, no JVD. No pulse deficits. Respiratory: Lungs have equal breath sounds bilaterally, clear to auscultation and percussion. No rales, rhonchi or wheezes noted. No increased work of breathing, no retractions or nasal flaring. Abdomen/GI: Soft, non-tender, with normal bowel sounds. No distension or tympany. No guarding or rebound. No evidence of tenderness throughout. Back: No spinal tenderness. No costovertebral tenderness. Full range of motion. Female : Normal external genitalia. Skin: Warm, dry with normal turgor. Normal color with no rashes, no lesions, and no evidence of cellulitis. MS/ Extremity: Pulses equal, no cyanosis. Neurovascular intact. Full, normal range of motion. Neuro: Awake and alert, GCS 15, oriented to person, place, time, and situation. Cranial nerves II-XII grossly intact. Motor strength 5/5 in all extremities. Sensory grossly intact. Cerebellar exam normal. Normal gait. Psych: Awake, alert, with orientation to person, place and time. Behavior, mood, and affect are within normal limits. 23:06 Head/face: Noted is a laceration(s), that is deep, 2.54 cm(s). 23:06 ECG was reviewed by the Attending Physician. Vital Signs: 22:52 BP 107 / 61; Pulse 89; Resp 21; Temp 96.9(TE); Pulse Ox 100% on R/A; Weight 98.43 kg ll3 (R); Height 5 ft. 4 in. (162.56 cm) (R); Pain 09/06; 09/22 00:15 BP 117 / 84; Pulse 82; Resp 18; Pulse Ox 99% on R/A; Pain /10; kl 09/21 22:52 Body Mass Index 37.25 (98.43 kg, 162.56 cm) ll3 Blaine Coma Score: 09/21 23:06 Eye Response: spontaneous(4). Verbal Response: oriented(5). Motor Response: obeys zack commands(6). Total: 15. 23:12 Eye Response: spontaneous(4). Verbal Response: oriented(5). Motor Response: obeys zack commands(6). Total: 15. Laceration: 23:11 Wound Repair of 2.5cm ( 1.0in ) subcutaneous laceration to forehead. Linear shaped.. zack Distal neuro/vascular/tendon intact. Anesthesia: Local anesthetic administered with 8 mls of 1% lidocaine w/ Epi. Wound prep: Simple cleansing by ia. Subcutaneous tissue closed with 2 5-0 Vicryl using interrupted sutures and sterile technique. Skin closed with 4 5-0 Prolene using interrupted sutures and sterile technique. Dressed with Neosporin. Patient tolerated well. MDM: 22:59 Patient medically screened. zack 23:12 Differential diagnosis: Contusion of Hematoma on Laceration of Intracranial bleed- zack Concussion without LOC. cerebral contusion. Data reviewed: vital signs, nurses notes, EMS record, lab test result(s), EKG, radiologic studies, CT scan. Data interpreted: monitor technician: rate is 89 beats/min, rhythm is regular, Pulse oximetry: on room air is 100 %. Test interpretation: by ED physician or midlevel provider: ECG. Counseling: I had a detailed discussion with the patient and/or guardian regarding: the historical points, exam findings, and any diagnostic results supporting the discharge/admit diagnosis, lab results, radiology results, the need for outpatient follow up, for definitive care, a family practitioner. 09/21 23:05 Order name: CBC with Diff; Complete Time: 23:48 [facility] 09/21 23:05 Order name: Comprehensive Metabolic Panel; Complete Time: 23:48 [facility] 09/21 23:05 Order name: CT Head C Spine [facility] 09/21 23:05 Order name: EKG; Complete Time: 23:05 [facility] 09/21 23:05 Order name: EKG - Nurse/Tech; Complete Time: 23:07 [facility] 09/21 23:05 Order name: Dressing - Wound; Complete Time: 00:34 [facility] 09/21 23:05 Order name: Gloves, Sterile; Complete Time: 23:15 [facility] 09/21 23:05 Order name: Prolene, Sutures; Complete Time: 00:34 zack 09/21 23:05 Order name: Setup Suture Tray; Complete Time: 23:15 [facility] 09/21 23:05 Order name: Vicryl, Sutures; Complete Time: 00:34 zack EC:06 Rate is 76 beats/min. Rhythm is regular. QRS Donahue is Normal. SC interval is normal. QRS zack interval is normal. QT interval is normal. No Q waves. T waves are Normal. No ST changes noted. Clinical impression: NSR w/ Non-specific ST/T Changes and No evidence of ischemia. Interpreted by me. Reviewed by me. Administered Medications: 23:33 Drug: Tetanus Toxoid,Adsorbed 0.5 ml {Hydroelectric Plant Mechanical Engineer: Shook. Exp: 04/16/2024. Lot #: [id number]. } Route: IM; Site: right deltoid; 09/22 00:34 Drug: Lidocaine-Epinephrine -1%: (1:100,000) 6 ml {Note: Administered by ERP. Murali} Volume: 20 ml; Route: Infiltration; 00:43 Drug: Ketorolac 15 mg Route: IVP; Site: right upper arm; Disposition Summary: 09/22/22 00:09 Discharge Ordered Location: Home zack Problem: new zack Symptoms: have improved zack Condition: Stable zack Diagnosis - Fall (on) (from) other stairs and steps zack - Laceration without foreign body of other part of head - forehead zack - Anemia, unspecified zack Followup: zack - With: Private Physician - When: 2 - 3 days - Reason: Recheck today's complaints, Continuance of care, Re-evaluation by your physician Discharge Instructions: - Discharge Summary Sheet zack - Anemia zack - Laceration Care, Adult zack - Facial Laceration zack - Laceration Care, Adult, [id number] zack - Fall Prevention in the Home, Adult zack - Facial Laceration, [id number] zack - Fall Prevention in the Home, Adult, [id number] zack Forms: - Medication Reconciliation Form zack - Thank You Letter zack - Antibiotic Education zack - Prescription Opioid Use zack Prescriptions: - Bactrim DS 800-160 mg Oral Tablet - take 1 tablet by ORAL route every 12 hours for 7 days; 14 tablet; Refills: 0, zakc Product Selection Permitted Signatures: Dispatcher [employer] Jenna Oleary RN RN kl Anderson, Corey, MD MD cha Loubet, Lynsea RN RN ll3
[2022-09-22] MEDS ORDERED: KETOROLAC 30 MG/ML INJ ONE (00:43)
[2022-09-22 01:20] VITALS: TEMP 96.9
[2022-09-22 01:21] VITALS: BP 117/84; O2SAT 99
--- NOTE | 2022-09-22 12:29 | RAD REPORT ---
EXAM DESCRIPTION: CT - Head C Spine Mpr Wo Con - 09/21/2022 11:31 pm CLINICAL HISTORY: Fall. TECHNIQUE: Noncontrast CT through the head was performed. Axial, coronal, and sagittal reconstructio ns were created and sent to PACS. CT of the cervical spine was performed without contrast. Axial, coronal, and sagittal reconstructions were created and sent to PACS. These exams were performed according to our departmental dose-optimization program which includes use of Automated Exposure Control, adjustment of the mA and/or kV according to patient size and/or use o f iterative reconstruction technique. COMPARISON: CT head from November 16, 2019. FINDINGS: CT Head: There is diffuse age-appropriate atrophy seen throughout the brain parenchyma. Mild periventricular w ramon matter changes are seen to be present and there is mild ex vacuo dilatation of the ventricular s ystem. There is no intra-axial or extra-axial bleed. There is no mass or mass effect. The visualized paranasal sinuses and mastoid air cells are clear. No acute fracture is identified. CT cervical spine: No acute osseous abnormality identified. Vertebral body height and alignment are maintained. No atlan todental interval widening. Atlantoaxial alignment is maintained. The facet joints are well aligned. The posterior elements are intact. The occipital condyles are well aligned with the C1 lateral masses . The transverse foramina are intact. C2-C3: No significant central canal or neuroforaminal narrowing. C3-C4: No significant central canal or neuroforaminal narrowing. C4-C5: Small posterior disc protrusion results in mild central canal narrowing to 0.7 cm AP. No signi ficant neuroforaminal narrowing. C5-C6: Small posterior disc protrusion results in mild central canal narrowing to 0.7 cm AP. No signi ficant neuroforaminal narrowing. C6-C7: No significant central canal or neuroforaminal narrowing. Paraspinal soft tissues: No prevertebral soft tissue swelling. No evidence of epidural hematoma. No a cute findings in the demonstrated portions of the lung apices. IMPRESSION: 1. No acute intracranial abnormality identified. 2. No acute osseous abnormality identified in the cervical spine. Electronically signed by: Libby Chand MD 09/21/2022 11:48 PM CDT Due to temporary technical issues with the PACS/Fluency reporting system, reports are being signed by the in house radiologists without review as a courtesy to insure prompt reporting. The interpreting radiologist is fully responsible for the content of the report.
--- NOTE | 2022-09-22 13:07 | EKG ---
Test Date: 2022-09-21 Test Time: 22:55:23 School Psychology Professor: BEKA MEASUREMENT RESULTS: Intervals: Rate: 76 [place]: 208 QRSD: 96 QT: 392 QTc: 441 [place]: P: 63 [place]: 208 QRS: 46 T: 109 INTERPRETIVE STATEMENTS: Normal sinus rhythm Nonspecific ST and T wave abnormality Abnormal ECG Compared to ECG 10/09/2021 11:00:58 ST (T wave) deviation now present First degree AV block no longer present Electronically Signed On 09-22-22 13:06:38 CDT by Umair Harp
== END 2022-09-22 00:54 | disposition home or self-care (01) ==
LOC: ER 22:50
PROC: 0JQ10ZZ Repair Face Subcutaneous Tissue and Fascia, Open Approach (ICD-10-PCS; principal; 2022-09-22)
DX: S01.81XA Laceration without foreign body of other part of head, initial encounter (principal); D64.9 Anemia, unspecified; W10.8XXA Fall (on) (from) other stairs and steps, initial encounter; Z23 Encounter for immunization; Z88.0 Allergy status to penicillin; Z88.5 Allergy status to narcotic agent
CPT/HCPCS: 36415; 70450; 72125; 80053; 85025; 90471; 90714; 93005; 96374; 99284

== ENCOUNTER 2024-05-17 17:39 | Emergency (ER) | payer OTHER ==
--- OUTSIDE RECORDS SUMMARY | 2024-05-17 17:43 | XMS REPORT | Continuity of Care Document ---
Author Name Unknown Address [address] [facility] [address] [place] [address] [facility] thconnect Address [address] [facility] [place] [address] Care Team Providers Care Exercise Instruct Name Role Phone FOUND, PCP NOT Primary Care Physician Unavailab Ann Mack Attending Clinician Unavail able Michel Shankar Attending Clinician Unavailable SELMA ANAYA Attending Clinician Unavaila DAVY Vitale Attending Clinician Unavailable Payers Payer Name Policy Type Policy Number Effective Date Expirati on Date Source [employer] 53 [id number] 2023 00:00:00 [facility] [id number] 2022 00:00:00 [facility] MCR Complete (HMO) 53 [id number] 2021 00:00:00 [facility] Problems Condition Name Condition Details Condition Category Status Onset Date Resolution Date Last Treatment Date Treating Clinician Comments Source [id number] Mixed hyperlipid emia Problem [facility] [id number] Non-season al allergic rhinitis, unspecifie d trigger Problem [facility] [id number] Current moderate episode of major depressive disorder without prior episode Problem [facility] [id number] Peripheral polyneurop athy Problem [facility] [id number] BMI 35.0-35.9, adult Problem [facility] [id number] GERD without esophagiti s Problem [facility] [id number] Morbid (severe) obesity due to excess calories Problem [facility] [id number] Generalize d anxiety disorder Problem [facility] [id number] Bipolar affective disorder, current episode mixed, current episode severity unspecifie d Problem [facility] [id number] Insomnia, unspecifie d type Problem [facility] [id number] Osteoarthr itis of multiple joints, unspecifie d osteoarthr itis type Problem [facility] Chronic kidney disease stage 3A (disorder) Chronic renal impairment , stage 3a Problem [facility] [id number] Lymphopeni a Problem [facility] [id number] Aphasia Problem [facility] [id number] Intention tremor Problem [facility] [id number] Other obesity due to excess calories Problem [facility] 59708052 Cigarette nicotine dependence without complicati on Problem [facility] Osteoarthr itis Polyosteoa rthritis, unspecifie d Problem [facility] 38149503 Chronic bronchitis , unspecifie d chronic bronchitis type Problem [facility] [id number] Panic attack Problem [facility] Social History Social Habit Start Date Stop Date Quantity Comments Source History of Tobacco Use Current Smoker [facility] Sex Assigned At [facility] Smoking Status Start Date Stop Date Source Current Smoker 2024-05-07 00:00:00 [facility] Former Smoker 2023-10-04 00:00:00 2023-10-04 00:00:00 [facility] Medications Ordered Medication Name Filled Medication Name Start Date Stop Date Current Medication? Ordering Clinician Indication Dosage Frequency Signature (SIG) Comments Components Source Symbicort 80-4.5 MCG/ACT Symbicort 80-4.5 MCG/ACT 2023-05-07 00:00: 00 No 1{puff_ as_need ed} 6xD Symbicort 80-4.5 MCG/ACT Iron Iron 04-18 00:00: 00 No 5{ml_as _needed } 6xD Iron Azithromyci n 250 MG Azithromyci n 250 MG 04-18 00:00: 00 No 1{table t} QD Azithromyc in 250 MG Propranolol HCl 10 MG Propranolol HCl 10 MG 03-07 00:00: 00 No 1{table t} QD Propranolo l HCl 10 MG Omeprazole 40 MG Omeprazole 40 MG 2021-11 00:00: 00 No QD Omeprazole 40 MG Meloxicam 7.5 MG Meloxicam 7.5 MG No 1{table t} Meloxicam 7.5 MG Loratadine 10 MG Loratadine 10 MG No 1{table t} QD Loratadine 10 MG Gabapentin 300 MG Gabapentin 300 MG No 1{capsu le} BID Gabapentin 300 MG QUEtiapine Fumarate 400 MG QUEtiapine Fumarate 400 MG No 1{table t_at_be dtime} QD QUEtiapine Fumarate 400 MG Atorvastati n Calcium 40 MG Atorvastati n Calcium 40 MG No 1{table t} QD Atorvastat in Calcium 40 MG Sertraline HCl 100 MG Sertraline HCl 100 MG No 1{table t} QD Sertraline HCl 100 MG Albuterol Sulfate HFA 108 (90 Base) MCG/ACT Albuterol Sulfate HFA 108 (90 Base) MCG/ACT No Albuterol Sulfate HFA 108 (90 Base) MCG/ACT Sertraline HCl 25 MG Sertraline HCl 25 MG No Sertraline HCl 25 MG HYDROcodone -Acetaminop hen 7.5-300 MG HYDROcodone -Acetaminop hen 7.5-300 MG No 1{table t_as_ne eded} QID HYDROcodon e-Acetamin ophen 7.5-300 MG traZODone HCl 150 MG traZODone HCl 150 MG No 1{table t_at_be dtime} QD traZODone HCl 150 MG Vital Signs Vital Name Observation Time Observation Value Comments S ource height 2024-05-07 09:40:00 64 [in_i] Commo n [facility] weight 2024-05-07 09:40:00 217 [lb_av] Comm on [facility] temperature 2024-05-07 09:40:00 97.5 [degF] Com [facility] bmi 2024-05-07 09:40:00 37.24 kg/m2 Comm on [facility] oximetry 2024-05-07 09:40:00 98 % Commo n [facility] respiratory rate 2024-05-07 09:40:00 18 /min Common [facility] blood pressure systolic 2024-05-07 09:40:00 124 mm[Hg] [facility] blood pressure diastolic 2024-05-07 09:40:00 70 mm[Hg] Common [facility] height 2024-02-03 09:50:00 64 [in_i] Commo n [facility] weight 2024-02-03 09:50:00 202.0 [lb_av] Co mmon [facility] temperature 2024-02-03 09:50:00 97.5 [degF] Com mon [facility] bmi 2024-02-03 09:50:00 34.67 kg/m2 Comm on [facility] oximetry 2024-02-03 09:50:00 98 % Commo n [facility] respiratory rate 2024-02-03 09:50:00 18 /min Common [facility] blood pressure systolic 2024-02-03 09:50:00 145 mm[Hg] Common [facility] blood pressure diastolic 2024-02-03 09:50:00 65 mm[Hg] Common [facility] height 2024-02-03 09:50:00 64 [in_i] Commo n [facility] weight 2024-02-03 09:50:00 202.0 [lb_av] Co mmon [facility] temperature 2024-02-03 09:50:00 97.5 [degF] Com mon [facility] bmi 2024-02-03 09:50:00 34.67 kg/m2 Comm on [facility] oximetry 2024-02-03 09:50:00 98 % Commo n [facility] respiratory rate 2024-02-03 09:50:00 18 /min Common [facility] blood pressure systolic 2024-02-03 09:50:00 145 mm[Hg] Common Spiri t [facility] blood pressure diastolic 2024-02-03 09:50:00 65 mm[Hg] [facility] height 2023-10-04 14:30:00 64 [in_i] Commo n [facility] weight 2023-10-04 14:30:00 190.6 [lb_av] Co mmon [facility] temperature 2023-10-04 14:30:00 97.7 [degF] Com [facility] bmi 2023-10-04 14:30:00 32.71 kg/m2 Comm on [facility] oximetry 2023-10-04 14:30:00 95 % Commo n [facility] respiratory rate 2023-10-04 14:30:00 16 /min Common [facility] blood pressure systolic 2023-10-04 14:30:00 124 mm[Hg] Common Spiri t [facility] blood pressure diastolic 2023-10-04 14:30:00 68 mm[Hg] [facility] height 2023-06-09 10:20:00 64 [in_i] Commo n [facility] weight 2023-06-09 10:20:00 205.7 [lb_av] Co mmon [facility] temperature 2023-06-09 10:20:00 97.3 [degF] Com [facility] bmi 2023-06-09 10:20:00 35.3 kg/m2 Commo n [facility] oximetry 2023-06-09 10:20:00 98 % Commo n [facility] respiratory rate 2023-06-09 10:20:00 18 /min [facility] blood pressure systolic 2023-06-09 10:20:00 129 mm[Hg] [facility] blood pressure diastolic 2023-06-09 10:20:00 63 mm[Hg] [facility] height 2023-02-07 15:10:00 64 [in_i] Commo n [facility] weight 2023-02-07 15:10:00 222.1 [lb_av] Co [facility] temperature 2023-02-07 15:10:00 97.2 [degF] Com [facility] bmi 2023-02-07 15:10:00 38.12 kg/m2 Comm on [facility] oximetry 2023-02-07 15:10:00 99 % Commo n [facility] respiratory rate 2023-02-07 15:10:00 18 /min [facility] blood pressure systolic 2023-02-07 15:10:00 126 mm[Hg] [facility] blood pressure diastolic 2023-02-07 15:10:00 71 mm[Hg] [facility] 2023-02-07 15:20:00 64 [in_i] Commo n [facility] weight 2023-02-07 15:20:00 222.1 [lb_av] Co [facility] temperature 2023-02-07 15:20:00 97.2 [degF] Com [facility] bmi 2023-02-07 15:20:00 38.12 kg/m2 Comm on [facility] oximetry 2023-02-07 15:20:00 99 % Commo n [facility] respiratory rate 2023-02-07 15:20:00 18 /min Common [facility] blood pressure systolic 2023-02-07 15:20:00 126 mm[Hg] [facility] blood pressure diastolic 2023-02-07 15:20:00 71 mm[Hg] [facility] height 2022-11-18 09:20:00 64 [in_i] Commo n [facility] weight 2022-11-18 09:20:00 218.0 [lb_av] Co [facility] temperature 2022-11-18 09:20:00 97.3 [degF] Com [facility] bmi 2022-11-18 09:20:00 37.42 kg/m2 Comm on [facility] oximetry 2022-11-18 09:20:00 99 % Commo n [facility] respiratory rate 2022-11-18 09:20:00 17 /min [facility] blood pressure systolic 2022-11-18 09:20:00 121 mm[Hg] [facility] blood pressure diastolic 2022-11-18 09:20:00 68 mm[Hg] [facility] height 2022-06-16 10:20:00 64 [in_i] Commo n [facility] weight 2022-06-16 10:20:00 220.7 [lb_av] Co on [facility] temperature 2022-06-16 10:20:00 99.9 [degF] Com [facility] bmi 2022-06-16 10:20:00 37.88 kg/m2 Comm on [facility] oximetry 2022-06-16 10:20:00 95 % Commo n [facility] respiratory rate 2022-06-16 10:20:00 16 /min [facility] blood pressure systolic 2022-06-16 10:20:00 135 mm[Hg] [facility] blood pressure diastolic 2022-06-16 10:20:00 72 mm[Hg] [facility] Encounters Start Date/Time End Date/Time Encounter Type Admission Type Attending [facility] Care Facility Care Department Encounter ID Source 2024-04-18 10:45:01 Outpatient Ann Fagan [facility] ST[facility] [id number] [facility] 2024-03-08 10:16:00 Outpatient Ann Fagan [facility] ST[facility] [id number] [facility] 2024-03-06 16:09:00 Outpatient Ann Fagan [facility] ST[facility] [id number] [facility] 2024-02-13 15:25:00 Outpatient Ann Fagan [facility] ST[facility] [id number] [facility] 2024-02-08 14:42:00 Outpatient Ann Fagan [facility] ST[facility] [id number] [facility] 2024-02-07 14:53:00 Outpatient Ann Fagan [facility]C ST[facility] [id number] [facility] 2024-02-03 09:47:01 Outpatient Ann Fagan [facility] ST[facility] [id number] [facility] 2024-02-01 14:35:01 Outpatient Shankar, Michel [facility] [id number] [facility] 2024-01-27 13:23:00 Outpatient Shankar, Michel [facility] ST[facility] [id number] [facility] 2023-06-07 08:24:00 Outpatient Shankar, Michel [facility] ST[facility] [id number] [facility] 2023-05-18 13:28:01 Outpatient Shankar, Michel [facility]LMLC STL[facility]C [id number] [facility] 2022-11-16 10:12:03 Outpatient Shankar, Michel STLML[facility] ST[facility] [id number] [facility] 2022-10-12 08:08:03 Outpatient Shankar, Michel [facility] ST[facility] [id number] [facility] 2022-09-24 10:31:03 Outpatient Shankar, Michel [facility] ST[facility] [id number] [facility] 2022-09-13 14:37:02 Outpatient Shankar, Michel [facility] ST[facility] [id number] [facility] 2022-06-16 10:29:04 Outpatient Shankar, Michel STLC STLMLC [id number] [facility] 2024-05-07 00:00:00 2024-05-07 00:00:00 OFFICE VISIT ESTAB PT LEVEL 4 [facility] ST[facility] [id number] [facility] 2024-04-18 00:00:00 2024-04-18 00:00:00 (TEL) STLMLC STL[facility]C [id number] [facility] 2024-04-18 00:00:00 2024-04-18 00:00:00 OFFICE VISIT ESTAB PT LEVEL 3 [facility] ST[facility] [id number] [facility] 2024-03-20 00:00:00 2024-03-20 00:00:00 (TEL) STLMLC STLMLC [id number] [facility] 2024-03-02 16:06:29 2024-03-02 16:06:29 Outpatient SFA SFA [id number] Jameel Davis 2024-02-15 00:00:00 2024-02-15 00:00:00 (TEL) STLMLC STLMLC [id number] [facility] 2024-02-07 14:30:00 2024-02-07 14:30:00 Outpatient SELMA ANAYA [facility] [id number] [facility] 2024-02-03 00:00:00 2024-02-03 00:00:00 OFFICE VISIT NEW PT LEVEL 4 [facility]LMLC STLMLC [id number] [facility] 2024-02-03 00:00:00 2024-02-03 00:00:00 SUB ANNUAL MCR WELLNESS VISIT STLMLC STLMLC [id number] [facility] 2024-02-03 00:00:00 2024-02-03 00:00:00 (TEL) STLMLC STLMLC [id number] [facility] 2024-01-27 00:00:00 2024-01-27 00:00:00 (TEL) STLMLC STLMLC [id number] [facility] 2023-10-04 00:00:00 2023-10-04 00:00:00 OFFICE VISIT ESTAB PT LEVEL 4 [facility]C STLMLC [id number] [facility] 2023-10-04 00:00:00 2023-10-04 00:00:00 (TEL) STLMLC STLMLC [id number] [facility] 2023-06-09 00:00:00 2023-06-09 00:00:00 OFFICE VISIT ESTAB PT LEVEL 4 [facility]C STL[facility]C [id number] [facility] 2023-04-18 00:00:00 2023-04-18 00:00:00 (TEL) STLMLC STLMLC [id number] [facility] 2023-04-01 11:55:00 2023-04-01 17:35:00 Emergency ER DAVY JAIN [facility] [id number] [facility]-02-07 00:00:00 2023-02-07 00:00:00 OFFICE VISIT ESTAB PT LEVEL 4 [facility]C STL[facility]C [id number] [facility] 2023-02-07 00:00:00 2023-02-07 00:00:00 SUB ANNUAL MCR WELLNESS VISIT STLMLC STLMLC [id number] [facility] 2023-02-07 00:00:00 2023-02-07 00:00:00 (TEL) STLMLC STLMLC [id number] [facility] 2023-01-07 00:00:00 2023-01-07 00:00:00 (TEL) STLMLC STLMLC [id number] [facility] 2022-11-19 00:00:00 2022-11-19 00:00:00 (TEL) STLMLC STLMLC [id number] [facility] 2022-11-18 00:00:00 2022-11-18 00:00:00 OFFICE VISIT ESTAB PT LEVEL 4 STLMLC STLMLC [id number] [facility] 2022-10-12 00:00:00 2022-10-12 00:00:00 (TEL) STLMLC STLMLC [id number] [facility] 2022-08-19 00:00:00 2022-08-19 00:00:00 (TEL) STLMLC STLMLC [id number] [facility] 2022-06-16 00:00:00 2022-06-16 00:00:00 OFFICE VISIT ESTAB PT LEVEL 4 [facility]C STL[facility]C [id number] [facility] Results Test Description Test Time Test Comments Results Result Co mments Source TSH REFLEX TO FREE [id number] 00:00:00* Test Item Value Reference Range Interpretation Comme nts TSH REFLEX TO FREE T4 (test code = 40247-6) 0.609 UIU/ML See_Comment [Automated [employer]] The system which generated this result transmitted reference range: 0.400-4.100 UIU/ML. The reference range was not used to interpret this result as normal/abnormal. URINALYSIS (CULTURE IF INDICATED)2023-09-27 00:00:00* Test Item Value Reference Range Interpretation Comme nts APPEARANCE (test code = 5767-9) CLEAR CLEAR BACTERIA (test code = 29399-4) NONE SEEN NONE SEEN BILIRUBIN (test code = 5770-3) NEGATIVE NEGATIVE CASTS, HYALINE (test code = 29030-1) NONE SEEN NONE-TRACE COLOR (test code = 5778-6) DARK YELLOW YELLOW-STRAW A CRYSTALS (test code = 5782-8) PRESENT NONE SEEN A EPITHELIAL CELLS (test code = 75745-6) 0-5 /HPF See_Comment [Automated messa ge] The system which generated this result transmitted reference range: 0-10 /HPF. The reference range was not used to interpret this result as normal/abnormal. GLUCOSE (test code = 5792-7) NEGATIVE NEGATIVE KETONES (test code = 5797-6) NEGATIVE NEGATIVE LEUKOCYTE ESTERASE (test code = 5799-2) 2+ NEGATIVE A NITRITE (test code = 5802-4) NEGATIVE NEGATIVE OCCULT BLOOD (test code = 17051-6) NEGATIVE NEGATIVE pH (test code = 5803-2) 6.0 5.0-9.0 PROTEIN (test code = 70021-5) TRACE NEGATIVE A RED BLOOD CELLS (test code = 46665-9) 0-2 /HPF See_Comment [Automated messa ge] The system which generated this result transmitted reference range: 0-2 /HPF. The reference range was not used to interpret this result as normal/abnormal. SPECIFIC GRAVITY (test code = 5811-5) 1.020 1.005-1.035 UROBILINOGEN (test code = 16494-7) 1.0 MG/DL See_Comment [Automated messa ge] The system which generated this result transmitted reference range: <=2.0 MG/DL. The reference range was not used to interpret this result as normal/abnormal. WHITE BLOOD CELLS (test code = 17751-6) 31-50 /HPF See_Comment A [Automated message] The system which generated this result transmitted reference range: 0-5 /HPF. The reference range was not used to interpret this result as normal/abnormal. LIPID PANEL WITH REFLEX DIRECT [id number] 00:00:00* Test Item Value Reference Range Interpretation Comme nts CALC LDL CHOL (test code = 80063-1) 82 MG/DL See_Comment [Automated messa ge] The system which generated this result transmitted reference range: <100 MG/DL. The reference range was not used to interpret this result as normal/abnormal. CHOLESTEROL (test code = 2093-3) 148 MG/DL See_Comment [Automated messa ge] The system which generated this result transmitted reference range: <200 MG/DL. The reference range was not used to interpret this result as normal/abnormal. HDL CHOLESTEROL (test code = 2085-9) 53 MG/DL See_Comment [Automated messa ge] The system which generated this result transmitted reference range: >39 MG/DL. The reference range was not used to interpret this result as normal/abnormal. RISK RATIO LDL/HDL (test code = 98404-7) 1.55 RATIO See_Comment [Automated message] The system which generated this result transmitted reference range: <3.22 RATIO. The reference range was not used to interpret this result as normal/abnormal. TRIGLYCERIDES (test code = 2571-8) 57 MG/DL See_Comment [Automated messa ge] The system which generated this result transmitted reference range: <150 MG/DL. The reference range was not used to interpret this result as normal/abnormal. PATHOLOGIST SMEAR [id number] 00:00:00* Test Item Value Reference Range Interpretation Comme nts BASOPHILS (test code = 64070-2) 0.5 % DIAGNOSIS: (test code = 29865-1) (NOTE) COMMENTS (test code = 24693-2) (NOTE) EOSINOPHILS (test code = 25711-0) 1.9 % HEMATOCRIT (test code = 22556-8) 29.9 % See_Comment L [Automated messa ge] The system which generated this result transmitted reference range: 34.0-45.0 %. The reference range was not used to interpret this result as normal/abnormal. HEMOGLOBIN (test code = 718-7) 9.4 G/DL See_Comment L [Automated messa ge] The system which generated this result transmitted reference range: 11.5-15.5 G/DL. The reference range was not used to interpret this result as normal/abnormal. LYMPHOCYTES (test code = 58252-9) 19.1 % MCH (test code = 46312-6) 28.7 PG See_Comment [Automated messa ge] The system which generated this result transmitted reference range: 25.0-33.0 PG. The reference range was not used to interpret this result as normal/abnormal. MCHC (test code = 25314-4) 31.4 G/DL See_Comment [Automated messa ge] The system which generated this result transmitted reference range: 31.0-36.0 G/DL. The reference range was not used to interpret this result as normal/abnormal. MCV (test code = 96838-1) 91.4 fL See_Comment [Automated messa ge] The system which generated this result transmitted reference range: 80.0-99.0 fL. The reference range was not used to interpret this result as normal/abnormal. MICROSCOPIC DESCRIPTION: (test code = 39712-7) (NOTE) MONOCYTES (test code = 86919-0) 7.4 % NEUTROPHILS (test code = 22636-3) 70.6 % NUCLEATED RBCS (test code = 60673-8) 0.0 /100 WBC'S See_Comment [Automated messa ge] The system which generated this result transmitted reference range: 0.0 /100 WBC'S. The reference range was not used to interpret this result as normal/abnormal. PATHOLOGIST: (test code = 87009-9) (NOTE) PLATELET COUNT (test code = 04343-1) 223 K/UL See_Comment [Automated messa ge] The system which generated this result transmitted reference range: 130-400 K/UL. The reference range was not used to interpret this result as normal/abnormal. RBC (test code = 61726-6) 3.27 M/UL See_Comment L [Automated messa ge] The system which generated this result transmitted reference range: 3.80-5.40 M/UL. The reference range was not used to interpret this result as normal/abnormal. RDW (test code = 17282-3) 11.7 % See_Comment [Automated messa ge] The system which generated this result transmitted reference range: 11.5-15.0 %. The reference range was not used to interpret this result as normal/abnormal. WBC (test code = 43377-8) 4.3 K/UL See_Comment [Automated messa ge] The system which generated this result transmitted reference range: 3.5-11.0 K/UL. The reference range was not used to interpret this result as normal/abnormal. IRON BINDING CAPACITY AND IRON AND % [id number] 00:00:00* Test Item Value Reference Range Interpretation Comme nts CALC % IRON SAT (test code = 2502-3) 27 % See_Comment [Automated messa ge] The system which generated this result transmitted reference range: 20-50 %. The reference range was not used to interpret this result as normal/abnormal. CALC TOTAL IBC (test code = 62658-0) 213 UG/DL See_Comment L [Automated messa ge] The system which generated this result transmitted reference range: 250-450 UG/DL. The reference range was not used to interpret this result as normal/abnormal. IRON, SERUM (test code = 2498-4) 58 UG/DL See_Comment [Automated messa ge] The system which generated this result transmitted reference range: 37-145 UG/DL. The reference range was not used to interpret this result as normal/abnormal. UNSATURATED IBC (test code = 2501-5) 155 UG/DL See_Comment [Automated messa ge] The system which generated this result transmitted reference range: 112-347 UG/DL. The reference range was not used to interpret this result as normal/abnormal. COMPREHENSIVE METABOLIC [id number] 00:00:00* Test Item Value Reference Range Interpretation Comme nts ALBUMIN (test code = 1751-7) 3.9 G/DL See_Comment [Automated messa ge] The system which generated this result transmitted reference range: 3.5-5.2 G/DL. The reference range was not used to interpret this result as normal/abnormal. ALKALINE PHOSPHATASE (test code = 6768-6) 85 U/L See_Comment [Automated message] The system which generated this result transmitted reference range: 40-142 U/L. The reference range was not used to interpret this result as normal/abnormal. BILIRUBIN, TOTAL (test code = 1975-2) 0.5 MG/DL See_Comment [Automated message] The system which generated this result transmitted reference range: <=1.2 MG/DL. The reference range was not used to interpret this result as normal/abnormal. BUN (test code = 3094-0) 12 MG/DL See_Comment [Automated messa ge] The system which generated this result transmitted reference range: 8-23 MG/DL. The reference range was not used to interpret this result as normal/abnormal. CALCIUM (test code = 95051-7) 9.0 MG/DL See_Comment [Automated messa ge] The system which generated this result transmitted reference range: 8.5-10.5 MG/DL. The reference range was not used to interpret this result as normal/abnormal. CALC A/G RATIO (test code = 1759-0) 1.4 RATIO See_Comment [Automated messa ge] The system which generated this result transmitted reference range: 1.0-2.6 RATIO. The reference range was not used to interpret this result as normal/abnormal. CALC BUN/CREAT (test code = 3097-3) 12 RATIO See_Comment [Automated messa ge] The system which generated this result transmitted reference range: 6-28 RATIO. The reference range was not used to interpret this result as normal/abnormal. CALC GLOBULIN (test code = 01546-6) 2.8 G/DL See_Comment [Automated messa ge] The system which generated this result transmitted reference range: 1.9-3.7 G/DL. The reference range was not used to interpret this result as normal/abnormal. CARBON DIOXIDE (test code = 1963-8) 25 MEQ/L See_Comment [Automated messa ge] The system which generated this result transmitted reference range: 19-31 MEQ/L. The reference range was not used to interpret this result as normal/abnormal. CHLORIDE (test code = 2075-0) 103 MEQ/L See_Comment [Automated messa ge] The system which generated this result transmitted reference range: 95-107 MEQ/L. The reference range was not used to interpret this result as normal/abnormal. CREATININE (test code = 2160-0) 1.00 MG/DL See_Comment [Automated messa ge] The system which generated this result transmitted reference range: 0.60-1.30 MG/DL. The reference range was not used to interpret this result as normal/abnormal. eGFR (2020 CKD-EPI) (test code = 02815-0) 61 ML/MIN/1.73 See_Comment [Automated messa ge] The system which generated this result transmitted reference range: >60 ML/MIN/1.73. The reference range was not used to interpret this result as normal/abnormal. GLUCOSE (test code = 1558-6) 105 MG/DL See_Comment H [Automated messa ge] The system which generated this result transmitted reference range: 70-99 MG/DL. The reference range was not used to interpret this result as normal/abnormal. POTASSIUM (test code = 2823-3) 3.8 MEQ/L See_Comment [Automated messa ge] The system which generated this result transmitted reference range: 3.5-5.4 MEQ/L. The reference range was not used to interpret this result as normal/abnormal. PROTEIN, TOTAL (test code = 2885-2) 6.7 G/DL See_Comment [Automated messa ge] The system which generated this result transmitted reference range: 6.1-8.3 G/DL. The reference range was not used to interpret this result as normal/abnormal. AST (test code = 1920-8) 33 U/L See_Comment [Automated messa ge] The system which generated this result transmitted reference range: 9-40 U/L. The reference range was not used to interpret this result as normal/abnormal. ALT (test code = 1742-6) 18 U/L See_Comment [Automated messa ge] The system which generated this result transmitted reference range: 5-40 U/L. The reference range was not used to interpret this result as normal/abnormal. SODIUM (test code = 2951-2) 140 MEQ/L See_Comment [Automated messa ge] The system which generated this result transmitted reference range: 133-146 MEQ/L. The reference range was not used to interpret this result as normal/abnormal.
--- NOTE | 2024-05-17 18:22 | RAD REPORT ---
EXAM DESCRIPTION: RAD - Chest Single View - 05/17/2024 6:15 pm CLINICAL HISTORY: COUGH Chest pain. COMPARISON: Chest Pa And Lat (2 Views) dated 11/22/2021; Chest Single View dated 11/16/2019; Chest S kalani View dated 08/12/2017; ABDOMEN 1 VIEW KUB dated 09/04/2015 FINDINGS: Portable technique limits examination quality. The lungs are grossly clear. The heart is normal in size. No displaced fractures. IMPRESSION: No acute intrathoracic process suspected.
[2024-05-17 18:32] LABS: Absolute Eosinophils 0.1 K/uL (0-0.5); Absolute Lymphocytes (CBC) 1.8 K/uL (0.7-4.9); Absolute Monocytes 0.5 K/uL (0.1-1.3); Absolute Neutrophil 2.5 K/uL (1.8-8.0); Basophils % 0.3 % (0-1.3); Eosinophils % 1.8 % (0-4.4); Hematocrit 30.5 % (36.0-45.0); Hemoglobin 9.8 g/dL (12.0-15.0); MCH 29.6 pg (27.0-35.0); MCHC 32.1 g/dL (32.0-36.0); Monocytes % 10.4 % (3.3-12.3); Neutrophils % 50.5 % (41.7-73.7); Platelets 189 thou/uL (152-406); RBC Red Blood Cell Count 3.32 M/uL (3.86-4.86)
[2024-05-17 18:50] LABS: AST/SGOT 13 U/L (15-37); Albumin 3.3 g/dL (3.4-5.0); Albumin/Globulin Ratio 0.8 (1.1-1.8); Alkaline Phosphatase 84 U/L (45-117); Anion Gap 7.2 mEq/L (5.0-15.0); BUN Blood Urea Nitrogen 24 mg/dL (7-18); Bicarbonate 28 mEq/L (21-32); Bilirubin Total 0.4 mg/dL (0.2-1.0); Globulin 4.2 g/dL (2.3-3.5); Glomerular Filtration Rate 54 ml/min (=/>90); Glucose Level 96 mg/dL (74-106); Magnesium 2.3 mg/dL (1.6-2.4); NT PRO-BNP 86 pg/mL (<125); Potassium 4.2 mEq/L (3.5-5.1); Protein, Total 7.5 g/dL (6.4-8.2); Sodium Level 140 mEq/L (136-145)
[2024-05-17 18:51] LABS: SARS-CoV-2 Antigen CONTROL BLUE LINE VIS/BG OK; SARS-CoV-2 Antigen Rapid Res Negative (Negative)
[2024-05-17 18:52] LABS: ALT/SGPT < 14 U/L (13-56); Bilirubin Direct < 0.2 mg/dL (0-0.2); Bilirubin Indirect, Calculated 0.2 mg/dL (0.2-0.8); Troponin High Sensitivity < 3.0 pg/mL (<58.9)
[2024-05-17 18:53] LABS: PT Prothrombin Time 12.7 SECONDS (9.4-12.5); Protime INR 1.16
--- NOTE | 2024-05-17 19:41 | ER ---
Nurse's Notes [facility] Name: Jacinta Olea Age: 68 yrs Sex: Female : 1955 Arrival Date: 05/17/2024 Time: 17:39 Bed 13 Private MD: Diagnosis: Viral illness, cough Presentation: 05/17 17:46 Chief complaint: Patient states: Congested, coughing, no fever, chest pains for about a nj1 week. Not getting better. Coronavirus screen: Vaccine status: Patient reports receiving the 2nd dose of the covid vaccine. Ebola Screen: Patient denies travel to an Ebola-affected area in the 21 days before illness onset. Initial Sepsis Screen: Does the patient meet any 2 criteria? No. Patient's initial sepsis screen is negative. Does the patient have a suspected source of infection? No. Patient's initial sepsis screen is negative. Risk Assessment: Do you want to hurt yourself or someone else? Patient reports no desire to harm self or others. Onset of symptoms was April 2024. 17:46 Method Of Arrival: Ambulatory [facility] 17:46 Acuity: LAUREN 3 nj1 Historical: - Allergies: 17:48 PENICILLINS; nj1 17:48 Tylenol-Codeine #3; nj1 - PMHx: 17:48 Anxiety; Depression; Hyperlipidemia; nj1 - Immunization history:: Client reports receiving the 2nd dose of the Covid vaccine. - Infectious Disease History:: Denies. - Social history:: Smoking status: Patient reports the use of cigarette tobacco products, denies chronic smoking, but will smoke occasionally. Screenin:18 [facility] ED Fall Risk Assessment (Adult) History of falling in the last 3 months, mb9 including since admission No falls in past 3 months (0 pts) Confusion or Disorientation No (0 pts) Intoxicated or Sedated No (0 pts) Impaired Gait No (0 pts) Mobility Assist Device Used No (0 pt) Altered Elimination No (0 pt) Score/Fall Risk Level 0 - 2 = Low Risk Oriented to surroundings, Maintained a safe environment, Educated pt \T\ family on fall prevention, incl call for assistance when getting out of bed. Abuse screen: Denies threats or abuse. Nutritional screening: No deficits noted. Tuberculosis screening: No symptoms or risk factors identified. Assessment: 18:17 General: Appears in no apparent distress. Behavior is calm, cooperative. Pain: mb9 Complains of pain in chest Pain does not radiate. Pain currently is 0 out of 10 on a pain scale. Pain began 2-3 days ago. Neuro: Monteiro Agitation-Sedation Scale (RASS): 0 - Alert and Calm Level of Consciousness is awake, alert, obeys commands, Oriented to person, place, time, situation, Appropriate for age. Cardiovascular: Heart tones S1 S2 present Patient's skin is warm and dry. Rhythm is regular. Respiratory: Reports cough that is Airway is patent Respiratory effort is even, unlabored, Respiratory pattern is regular, symmetrical, Breath sounds are clear bilaterally. GI: Abdomen is round non-distended, Bowel sounds present X 4 quads. Abd is soft and non tender X 4 quads. : No signs and/or symptoms were reported regarding the genitourinary system. EENT: Throat is clear. Derm: Skin is pink, warm \T\ dry. Musculoskeletal: Range of motion: intact in all extremities. 19:17 Reassessment: No changes from previously documented assessment. Patient and/or family mb9 updated on plan of care and expected duration. Pain level reassessed. Patient is alert, oriented x 3, equal unlabored respirations, skin warm/dry/pink. Vital Signs: 17:46 BP 105 / 45; Pulse 72; Resp 18; Temp 98(O); Pulse Ox 98% ; Weight 94.8 kg; Height 5 ft. nj1 4 in. ; Pain 10/10; 18:16 BP 117 / 59; Pulse 70; Resp 18; Pulse Ox 100% on R/A; mb9 19:17 Pulse 72; Resp 18; Pulse Ox 100% on R/A; mb9 17:46 Body Mass Index 35.87 (94.80 kg, 162.56 cm) nj1 17:46 Pain Scale: Adult nj1 ED Course: 17:40 Patient arrived in ED. rg4 17:42 Nilda Shankar MD is Attending Physician. sp3 17:48 Triage completed. nj1 17:49 Jacinta Gamez, NAVA is Primary Nurse. mb9 17:49 Arm band placed on right wrist. nj1 17:50 EKG done, by ED staff, reviewed by Nilda Shankar MD. mb9 18:05 Missed attempt(s): 22 gauge in left antecubital area. Bleeding controlled, band aid mb9 applied, catheter tip intact. 18:12 Strep Sent. mb9 18:12 SARS RAPID Sent. mb9 18:12 Flu Sent. mb9 18:17 XRAY Chest (1 view) In Process Unspecified. EDMS 18:19 Placed in gown. Bed in low position. Call light in reach. Side rails up X 1. Provided mb9 Education on: press call light if needing anything. Client placed on continuous cardiac and pulse oximetry monitoring. NIBP monitoring applied. dressing room attendant on. 18:19 No provider procedures requiring assistance completed. mb9 18:20 Initial lab(s) drawn, by me, sent to lab. Inserted saline lock: 22 gauge in right upper aa5 arm, using aseptic technique. Blood collected. 19:50 IV discontinued, intact, bleeding controlled, No redness/swelling at site. Pressure mb9 dressing applied. Administered Medications: 19:50 Drug: Acetaminophen PO 650 mg PO once Route: PO; mb9 19:50 Follow up: Response: No adverse reaction mb9 Medication: 18:19 VIS not applicable for this client. mb9 Outcome: 19:41 Discharge ordered by . sp3 19:50 Discharged to home ambulatory, mb9 19:50 Condition: stable 19:50 Discharge instructions given to patient, Instructed on discharge instructions, follow up and referral plans. Demonstrated understanding of instructions, follow-up care, medications, Prescriptions given X 1, 19:50 Patient left the ED. mb9 Signatures: Dispatcher [employer] EDMS Nohemi Ibarra RN RN aa5 Christine Jackson rg4 Nilda Shankar MD MD sp3 Jacinta Gamze RN RN mb9 Aparna Burt, RN RN nj1 Corrections: (The following items were deleted from the chart) 17:49 17:46 Pulse 72bpm; Resp 18bpm; Pulse Ox 98%; Temp 98F Oral; 94.8 kg; Height 5 ft. 4 nj1 in.; BMI: 35.8; Pain 09/06, Adult; nj1
--- NOTE | 2024-05-17 19:41 | EDPHYS ---
Physician Documentation [facility] Name: Jacinta Olea Age: 68 yrs Sex: Female : 1955 Arrival Date: 05/17/2024 Time: 17:39 Bed 13 Private MD: ED Physician Nilda Shankar HPI: 05/17 18:27 This 68 yrs old Black Female presents to ER via Ambulatory with complaints of Cough, sp3 Chest Pain. 18:27 68-year-old female with a history of anxiety, depression, hyperlipidemia presents to 3 the ED with chief complaint cough and subjective fever and bodyaches for 3 to 4 days. Patient is a patient of Dr. Michel Shankar whom she has not had a chance to visit. She denies any substernal chest pain, shortness of breath, dyspnea on exertion, pedal edema, abdominal pain, nausea, vomiting, diarrhea, objective measured fever, rhinorrhea, known sick contacts, travel history, prolonged immobilization, or any other signs or symptoms on ROS at this time.. Historical: - Allergies: 17:48 PENICILLINS; nj1 17:48 Tylenol-Codeine #3; nj1 - PMHx: 17:48 Anxiety; Depression; Hyperlipidemia; nj1 - Immunization history:: Client reports receiving the 2nd dose of the Covid vaccine. - Infectious Disease History:: Denies. - Social history:: Smoking status: Patient reports the use of cigarette tobacco products, denies chronic smoking, but will smoke occasionally. ROS: 18:28 Constitutional: Negative for fever, chills, and weight loss, Eyes: Negative for injury, sp3 pain, redness, and discharge, ENT: Negative for injury, pain, and discharge, Neck: Negative for injury, pain, and swelling, Abdomen/GI: Negative for abdominal pain, nausea, vomiting, diarrhea, and constipation, Back: Negative for injury and pain, MS/Extremity: Negative for injury and deformity, Skin: Negative for injury, rash, and discoloration, Neuro: Negative for headache, weakness, numbness, tingling, and seizure, Psych: Negative for depression, anxiety, suicide ideation, homicidal ideation, and hallucinations, Allergy/Immunology: Negative for hives, rash, and allergies, Endocrine: Negative for neck swelling, polydipsia, polyuria, polyphagia, and marked weight changes, Hematologic/Lymphatic: Negative for swollen nodes, abnormal bleeding, and unusual bruising, 18:28 All other systems are negative, Exam: 18:28 Constitutional: This is a well developed, well nourished patient who is awake, alert, sp3 and in no acute distress. Head/Face: Normocephalic, atraumatic. Eyes: Pupils equal round and reactive to light, extra-ocular motions intact. Lids and lashes normal. Conjunctiva and sclera are non-icteric and not injected. Cornea within normal limits. Periorbital areas with no swelling, redness, or edema. Neck: Trachea midline, no thyromegaly or masses palpated, and no cervical lymphadenopathy. Supple, full range of motion without nuchal rigidity, or vertebral point tenderness. No Meningismus. Chest/axilla: Normal chest wall appearance and motion. Nontender with no deformity. No lesions are appreciated. Cardiovascular: Regular rate and rhythm with a normal S1 and S2. No gallops, murmurs, or rubs. Normal PMI, no JVD. No pulse deficits. Abdomen/GI: Soft, non-tender, with normal bowel sounds. No distension or tympany. No guarding or rebound. No evidence of tenderness throughout. Back: No spinal tenderness. No costovertebral tenderness. Full range of motion. Skin: Warm, dry with normal turgor. Normal color with no rashes, no lesions, and no evidence of cellulitis. MS/ Extremity: Pulses equal, no cyanosis. Neurovascular intact. Full, normal range of motion. Neuro: Awake and alert, GCS 15, oriented to person, place, time, and situation. Cranial nerves II-XII grossly intact. Motor strength 5/5 in all extremities. Sensory grossly intact. Cerebellar exam normal. Normal gait. Psych: Awake, alert, with orientation to person, place and time. Behavior, mood, and affect are within normal limits. 18:28 Respiratory: Clear lungs, mild cough. Vital signs are normal. Respiratory rate 18. Pulse oxygenation 100% on room air., 18:32 ECG was reviewed by the Attending Physician. EKG demonstrates normal sinus rhythm at 77 sp3 bpm with normal intervals, normal QRS, normal axis, normal ST's ST segments without evidence of acute ischemia. Vital Signs: 17:46 BP 105 / 45; Pulse 72; Resp 18; Temp 98(O); Pulse Ox 98% ; Weight 94.8 kg; Height 5 ft. nj1 4 in. ; Pain 10/10; 18:16 BP 117 / 59; Pulse 70; Resp 18; Pulse Ox 100% on R/A; mb9 19:17 Pulse 72; Resp 18; Pulse Ox 100% on R/A; mb9 17:46 Body Mass Index 35.87 (94.80 kg, 162.56 cm) nj1 17:46 Pain Scale: Adult nj1 MDM: 17:50 Patient medically screened. sp3 18:29 Data reviewed: vital signs, nurses notes, old medical records, lab test result(s), EKG, sp3 radiologic studies. ED course: 68-year-old female with cough and bodyaches. Differential diagnosis includes pneumonia, bronchitis, COVID-19, influenza, other viral illness, strep pharyngitis, viral syndrome, among others. I am not highly suspicious for sepsis, shock or any other critical process. Workup will include chest x-ray, EKG, swabs and blood work. If workup is negative, we will safely discharge patient home with any indicated medications with follow-up to PCP.. 19:39 ED course: Full workup negative. Patient in no acute distress with normal vital signs. sp3 Antibiotics not indicated. Will discharge patient home with diagnosis of viral illness and with Tessalon for symptomatic cough.. 05/17 17:59 Order name: Basic Metabolic Panel; Complete Time: 18:57 sp3 05/17 17:59 Order name: CBC with Diff; Complete Time: 19:39 sp3 05/17 17:59 Order name: LFT's; Complete Time: 18:57 sp3 05/17 17:59 Order name: Magnesium; Complete Time: 18:57 sp3 05/17 17:59 Order name: NT PRO-BNP; Complete Time: 18:57 sp3 05/17 17:59 Order name: PT-INR; Complete Time: 18:57 sp3 05/17 17:59 Order name: Troponin HS; Complete Time: 18:57 sp3 05/17 17:59 Order name: Flu; Complete Time: 18:57 sp3 05/17 17:59 Order name: SARS RAPID; Complete Time: 18:57 sp3 05/17 17:59 Order name: Strep; Complete Time: 19:12 sp3 05/17 19:02 Order name: Throat Culture EDMS 06/20 17:59 Order name: XRAY Chest (1 view); Complete Time: 18:26 sp3 05/17 17:59 Order name: Cardiac monitoring; Complete Time: 18:05 sp3 05/17 17:59 Order name: EKG - Nurse/Tech; Complete Time: 18:05 sp3 05/17 17:59 Order name: IV Saline Lock; Complete Time: 18:25 sp3 05/17 17:59 Order name: Labs collected and sent; Complete Time: 18:25 sp3 05/17 17:59 Order name: O2 Per Protocol; Complete Time: 18:05 sp3 05/17 17:59 Order name: O2 Sat Monitoring; Complete Time: 18:05 sp3 Administered Medications: 19:50 Drug: Acetaminophen PO 650 mg PO once Route: PO; mb9 19:50 Follow up: Response: No adverse reaction mb9 Disposition Summary: 05/17/24 19:41 Discharge Ordered Notes: Location: Home sp3 Condition: Stable sp3 Diagnosis - Viral illness, cough sp3 Followup: sp3 - With: Private Physician - When: Upon discharge from the Emergency Department - Reason: Continuance of care Discharge Instructions: - Discharge Summary Sheet sp3 - Viral Illness, Adult sp3 Forms: - Medication Reconciliation Form sp3 - Antibiotic Education sp3 - Prescription Opioid Use sp3 - Patient Portal Instructions sp3 - Leadership Thank You Letter sp3 Prescriptions: - Tessalon Perles 100 mg Oral Capsule - take 1 capsule ORAL route every 8 hours As needed; 15 capsule; Refills: 0, sp3 Product Selection Permitted Signatures: Dispatcher [employer] EDNilda Vega MD MD sp3 Jacinta Gamez RN RN mb9 Aparna Burt RN RN nj1 Corrections: (The following items were deleted from the chart) 17:59 17:59 Chest Single View+[email or web address] ordered. [facility]
[2024-05-17] MEDS ORDERED: ACETAMINOPHEN 325 MG TABLET ONE (19:45)
[2024-05-17 20:10] VITALS: BP 117/59; TEMP 98; O2SAT 100
--- NOTE | 2024-05-18 12:33 | EKG ---
Test Date: 2024-05-17 Test Time: 17:57:13 Rig Manager: MB MEASUREMENT RESULTS: Intervals: Rate: 77 WV: 198 QRSD: 94 QT: 372 QTc: 420 [place]: P: 67 WV: 198 QRS: 66 T: 59 INTERPRETIVE STATEMENTS: Normal sinus rhythm Normal ECG Compared to ECG 09/21/2022 22:55:23 ST (T wave) deviation no longer present Electronically Signed On 05-18-24 12:31:51 CDT by Umair Harp
== END 2024-05-17 19:50 | disposition home or self-care (01) ==
LOC: ER 17:39
DX: B34.9 Viral infection, unspecified (principal); Z11.52 Encounter for screening for COVID-19
CPT/HCPCS: 36415; 71045; 80048; 80076; 83735; 83880; 84484; 85025; 85610; 87070; 87081; 87804; 87811; 93005; 99285